=== PATIENT | female | born 1970 | race African-American/Black ===

== ENCOUNTER 2017-05-31 10:20 | Emergency (ER) | payer SELFPAY ==
[2017-05-31] MEDS ORDERED: LIDOCAINE 2% VISCOUS SOLN 20 ML UDCUP PO ONE (10:47)
--- NOTE | 2017-05-31 10:47 | ER Document Report ---
ED Medical Screen (RME) - General Chief Complaint: Dizziness Stated Complaint: POSSIBLE INGESTION Time Seen by Provider: 05/31/17 10:41 Mode of Arrival: Ambulatory Information source: Patient TRAVEL OUTSIDE OF THE [place] IN LAST 30 DAYS: No - HPI Patient complains to provider of: Accidental ingestion Onset: This morning Onset/Duration: Gradual Quality of pain: Burning Associated Symptoms: None Exacerbated by: Denies Notes: 05/31/17 10:49 Patient is a 46-year-old female who states that approximately 3 AM this morning she accidentally drank what she thought was potpourri instead of an appropriate beverage. She was awake cleaning her house and took a BC capsule and drink the liquid to help wash it down. It appears that the bottle that contained potpourri actually contained some type of cleaning substance as it is clearly not potpourri but otherwise unidentifiable. Patient states several hours later she began with abdominal burning. No vomiting. No fevers or chills. - Related Data Smoking: Non-smoker Allergies/Adverse Reactions: No Known Allergies Allergy (Verified 05/31/17 10:26) Past Medical History - General Information source: Patient, [facility] Records - Social History Frequency of alcohol use: Occasional Drug Abuse: None - Past Medical History Cardiac Medical History: Reports: Hx Hypertension Neurological Medical History: Reports: Hx Migraine Renal/ Medical History: Denies: Hx Peritoneal Dialysis Psychiatric Medical History: Reports: Hx Attention Deficit Hyperactivity Disorder Past Surgical History: Reports: Hx Section - 2005, Hx Tubal Ligation - Immunizations Immunizations up to date: No Hx Diphtheria, Pertussis, Tetanus Vaccination: Yes Review of Systems - Review of Systems Gastrointestinal: Abdominal pain -: Yes All other systems reviewed and negative Physical Exam - Vital signs Vitals: Temp Pulse Resp BP Pulse Ox 98.4 F 71 16 134/91 H 100 05/31/17 10:25 05/31/17 10:25 05/31/17 10:25 05/31/17 10:25 05/31/17 10:25 Interpretation: Normal - General General appearance: Appears well, Alert - HEENT Head: Normocephalic, Atraumatic Eyes: Normal Pupils: PERRL - Respiratory Respiratory status: No respiratory distress Chest status: Nontender Breath sounds: Normal Chest palpation: Normal - Cardiovascular Rhythm: Regular Heart sounds: Normal auscultation Murmur: No - Abdominal Inspection: Normal Distension: No distension Bowel sounds: Normal Tenderness: Nontender Organomegaly: No organomegaly - Back Back: Normal, Nontender - Extremities General upper extremity: Normal inspection, Nontender, Normal color, Normal ROM , Normal temperature General lower extremity: Normal inspection, Nontender, Normal color, Normal ROM , Normal temperature, Normal weight bearing. No: Maite's sign - Neurological Neuro grossly intact: Yes Cognition: Normal Orientation: AAOx4 Mariola Coma Scale Eye Opening: Spontaneous Mariola Coma Scale Verbal: Oriented Elberta Coma Scale Motor: Obeys Commands Elberta Coma Scale Total: 15 Speech: Normal Motor strength normal: LUE, RUE, LLE, RLE Sensory: Normal - Psychological Associated symptoms: Normal affect, Normal mood - Skin Skin Temperature: Warm Skin Moisture: Dry Skin Color: Normal Course - Re-evaluation Re-evalutation: 05/31/17 11:43 Patient with accidental ingestion of nontoxic cleaning product. There was no chlorine odor noted to the substance consumed. She does have some associated gastritis as a result. Given GI cocktail along with tramadol here. Discussed need to increase fluids. Allen diet. Also discussed need to not place substances and bottles that are not properly labeled. No indication for further intervention at this time. 05/31/17 11:45 - Vital Signs Vital signs: Temp Pulse Resp BP Pulse Ox 98.4 F 71 16 134/91 H 100 05/31/17 10:25 05/31/17 10:25 05/31/17 10:25 05/31/17 10:25 05/31/17 10:25 Doctor's Discharge - Discharge Clinical Impression: Accidental ingestion of substance Condition: Good Disposition: HOME, SELF-CARE Instructions: Overdose / Ingestion ([facility]) Additional Instructions: Increase clear fluids. Allen diet. Be sure not to place chemicals in them properly labeled bottles. Always read label of what you are drinking prior to drinking it. Follow-up with your primary care doctor. Return to the emergency department if worse or for any other problems. Prescriptions: Sucralfate [Carafate] 1 gm PO QID #150 ml
[2017-05-31] MEDS ORDERED: MAG HYDROX/AL HYDROX/SIMETH SUSP 30 ML UDCUP PO ONE (10:48)
[2017-05-31] MEDS ORDERED: TRAMADOL HCL 50 MG TABLET PO ONE (11:32)
[2017-05-31] MEDS ORDERED: HYDROCODONE/ACETAMINOPHEN 5-325 MG TABLET PO ONE (12:25)
[2017-05-31] MEDS ORDERED: HYDROCODONE/ACETAMINOPHEN 5-325 MG TABLET ONE (12:28)
[2017-05-31 13:00] VITALS: BP 119/75
== END 2017-05-31 12:45 | disposition home or self-care (01) ==
LOC: ER 10:20
DX: K29.70 Gastritis, unspecified, without bleeding (principal); T65.891A Toxic effect of other specified substances, accidental (unintentional), initial encounter; Y92.009 Unspecified place in unspecified non-institutional (private) residence as the place of occurrence of the external cause; R10.9 Unspecified abdominal pain; I10 Essential (primary) hypertension
CPT/HCPCS: 99283; J3490

== ENCOUNTER 2017-07-01 07:21 | Emergency (ER) | payer SELFPAY ==
[2017-07-01] MEDS ORDERED: NORMAL SALINE 1000 ML 1,000 ML IV ONE (07:57)
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
[2017-07-01 08:29] LABS: ABSOLUTE LYMPHOCYTES (AUTO) 1.9 10^3/uL (0.5-4.7); ABSOLUTE MONOCYTES (AUTO) 0.3 10^3/uL (0.1-1.4); ABSOLUTE NEUT (AUTO) 0.9 10^3/uL (1.7-8.2); BASOPHILS % (AUTO) 1.1 % (0-2); EOSINOPHILS % (AUTO) 1.5 % (0-6); HEMATOCRIT 26.6 % (36.0-47.0); HEMOGLOBIN 8.9 g/dL (12.0-15.5); HGB HCT DIFFERENCE 0.1; LYMPHOCYTES % (AUTO) 58.1 % (13-45); MEAN CORPUSCULAR HEMOGLOBIN 29.4 pg (27.0-33.4); MEAN CORPUSCULAR HGB CONC 33.5 g/dL (32.0-36.0); MEAN CORPUSCULAR VOLUME 88 fl (80-97); MONOCYTES % (AUTO) 10.4 % (3-13); RED BLOOD COUNT 3.04 10^6/uL (3.72-5.28); SEGMENTED NEUTROPHILS % (AUTO) 28.9 % (42-78); WHITE BLOOD COUNT 3.2 10^3/uL (4.0-10.5)
[2017-07-01 08:41] LABS: ALANINE AMINOTRANSFERASE 23 U/L (9-52); ALBUMIN 3.4 g/dL (3.5-5.0); ALCOHOL < 10 mg/dL (NONE DETECTED); ALKALINE PHOSPHATASE 32 U/L (38-126); ANION GAP 9 (5-19); ASPARTATE AMINO TRANSFERASE 19 U/L (14-36); BILIRUBIN,DIRECT 0.3 mg/dL (0.0-0.4); BILIRUBIN,TOTAL 0.3 mg/dL (0.2-1.3); BLOOD UREA NITROGEN 18 mg/dL (7-20); CALCIUM 8.8 mg/dL (8.4-10.2); CARBON DIOXIDE 22 mmol/L (22-30); CHLORIDE 108 mmol/L (98-107); CREATININE RESULT 1.11 mg/dL (0.52-1.25); GLUCOSE 80 mg/dL (75-110); POTASSIUM 3.5 mmol/L (3.6-5.0); SODIUM 138.6 mmol/L (137-145); TOTAL PROTEIN 6.3 g/dL (6.3-8.2)
[2017-07-01 09:34] LABS: APPEARANCE,URINE CLEAR; BILIRUBIN,URINE NEGATIVE (NEGATIVE); GLUCOSE, URINE NEGATIVE (NEGATIVE); KETONES,URINE NEGATIVE (NEGATIVE); LEUKOCYTE ESTERASE,URINE NEGATIVE (NEGATIVE); NITRITE,URINE NEGATIVE (NEGATIVE); PROTEIN,URINE NEGATIVE (NEGATIVE); UROBILINOGEN,URINE NEGATIVE mg/dL (<2.0)
[2017-07-01 10:03] LABS: URINE BARBITURATES SCREEN NEGATIVE; URINE METHADONE SCREEN NEGATIVE; URINE OPIATES LOW NEGATIVE; URINE PHENCYCLIDINE SCREEN NEGATIVE
--- NOTE | 2017-07-01 10:25 | RADIOLOGY REPORT (SQ) ---
EXAM DESCRIPTION: CT HEAD WITHOUT COMPLETED DATE/TIME: 07/01/2017 9:58 am REASON FOR STUDY: altered mental status COMPARISON: None. TECHNIQUE: Axial images acquired through the brain without intravenous contrast. Images reviewed wi th bone, brain and subdural windows. Images stored on PACS. All CT scanners at this facility use dose modulation, iterative reconstruction, and/or weight based d osing when appropriate to reduce radiation dose to as low as reasonably achievable (ALARA). [facility]: Dose Right [facility]: CareDose [facility]: Dose Right [facility]: Teradose 4D [facility]: Smart [employer] RADIATION DOSE: Up-to-date CT equipment and radiation dose reduction techniques were employed. CTDIv ol: 64.6 mGy. DLP: 1163 mGy-cm. mGy. LIMITATIONS: None. FINDINGS: VENTRICLES: Normal size and contour. CEREBRUM: No masses. No hemorrhage. No midline shift. Normal jain/white matter differentiation. N o evidence for acute infarction. CEREBELLUM: No masses. No hemorrhage. No alteration of density. No evidence for acute infarction. EXTRAAXIAL SPACES: No fluid collections. No masses. ORBITS AND GLOBE: No intra- or extraconal masses. Normal contour of globe without masses. CALVARIUM: No fracture. PARANASAL SINUSES: No fluid or mucosal thickening. SOFT TISSUES: No mass or hematoma. OTHER: No other significant finding. IMPRESSION: NORMAL BRAIN CT WITHOUT CONTRAST. TECHNICAL DOCUMENTATION: JOB ID: [id number] Quality ID # [id number]: Final reports with documentation of one or more dose reduction techniques (e.g., Au tomated exposure control, adjustment of the mA and/or kV according to patient size, use of iterative reconstruction technique) 2010 [employer]- All Rights Reserved
[2017-07-01 11:17] VITALS: BP 105/79
--- NOTE | 2017-07-01 16:33 | EKG REPORT ---
SEVERITY:- NORMAL ECG - SINUS RHYTHM : Confirmed by: Darlene Saul 01-Jul-2017 16:33:04
== END 2017-07-01 11:14 | disposition home or self-care (01) ==
LOC: ER 07:21
DX: F19.10 Other psychoactive substance abuse, uncomplicated (principal); I10 Essential (primary) hypertension; Z98.51 Tubal ligation status
CPT/HCPCS: 93005; 99285; 96360; 96361; 36415; 80307 ×2; 83735; 85025; 82272; 80053; 81001; 70450; 93010; J7030

== ENCOUNTER 2017-10-09 12:31 | Emergency (ER) | payer SELFPAY ==
[2017-10-09] MEDS ORDERED: CEPHALEXIN 500 MG CAPSULE PO ONE (13:41)
[2017-10-09] MEDS ORDERED: SULFAMETHOXAZOLE/TRIMETHOPRIM 800-160 MG TABLET PO ONE (13:41)
[2017-10-09] MEDS ORDERED: HYDROCODONE/ACETAMINOPHEN 5-325 MG 6 TAB/DSPK PO PRN (13:42)
--- NOTE | 2017-10-09 13:44 | ER Document Report ---
ED Skin Rash/Insect Bite/Abscs - General Chief Complaint: abcess Stated Complaint: LEG PAIN Time Seen by Provider: 10/09/17 12:55 Mode of Arrival: Ambulatory Information source: Patient Notes: 7-year-old female presents to ED for a abscess to the right lower leg TRAVEL OUTSIDE OF THE [place] IN LAST 30 DAYS: No - HPI Patient complains to provider of: Tender/swollen area Onset: Other Onset/Duration: Gradual Quality of pain: Fullness, Pressure, Sharp Severity: Severe Pain Level: 5 Skin Character: Abscess Quality of rash: Painful Identify cause: No Exacerbated by: Denies Relieved by: Denies Similar symptoms previously: Yes Recently seen / treated by doctor: No - Related Data Allergies/Adverse Reactions: No Known Allergies Allergy (Verified 05/31/17 10:26) Past Medical History - General Information source: Patient - Social History Smoking Status: Current Every Day Smoker Cigarette use (# per day): Yes Chew tobacco use (# tins/day): No Smoking Education Provided: Yes - Less than 3 minutes Frequency of alcohol use: None Drug Abuse: None Lives with: Family Family History: Reviewed & Not Pertinent Patient has suicidal ideation: No Patient has homicidal ideation: No - Past Medical History Cardiac Medical History: Reports: Hx Hypertension Pulmonary Medical History: Reports: None EENT Medical History: Reports: None Neurological Medical History: Reports: Hx Migraine Endocrine Medical History: Reports: None Renal/ Medical History: Reports: None Malignancy Medical History: Reports: None GI Medical History: Reports: None Musculoskeltal Medical History: Reports None Skin Medical History: Reports Hx Cellulitis Psychiatric Medical History: Reports: Hx Attention Deficit Hyperactivity Disorder Traumatic Medical History: Reports: None Infectious Medical History: Reports: None Past Surgical History: Reports: Hx Section - 2006, Hx Tubal Ligation - Immunizations Immunizations up to date: No Hx Diphtheria, Pertussis, Tetanus Vaccination: Yes Review of Systems - Review of Systems Constitutional: No symptoms reported EENT: No symptoms reported Cardiovascular: No symptoms reported Respiratory: No symptoms reported Gastrointestinal: No symptoms reported Genitourinary: No symptoms reported Female Genitourinary: No symptoms reported Musculoskeletal: No symptoms reported Skin: Other - Abscess to right lower leg Hematologic/Lymphatic: No symptoms reported Neurological/Psychological: No symptoms reported Physical Exam - Vital signs Vitals: Temp Pulse Resp BP Pulse Ox 98.7 F 76 20 158/100 H 100 10/09/17 12:39 10/09/17 12:39 10/09/17 12:39 10/09/17 12:39 10/09/17 12:39 Interpretation: Normal - General General appearance: Appears well, Alert - HEENT Head: Normocephalic, Atraumatic Eyes: Normal Pupils: PERRL - Respiratory Respiratory status: No respiratory distress Chest status: Nontender Breath sounds: Normal Chest palpation: Normal - Cardiovascular Rhythm: Regular Heart sounds: Normal auscultation Murmur: No - Abdominal Inspection: Normal Distension: No distension Bowel sounds: Normal Tenderness: Nontender Organomegaly: No organomegaly - Back Back: Normal, Nontender - Extremities General upper extremity: Normal inspection, Nontender, Normal color, Normal ROM , Normal temperature General lower extremity: Normal ROM, Normal temperature, Normal weight bearing. No: Maite's sign - Neurological Neuro grossly intact: Yes Cognition: Normal Orientation: AAOx4 Williamson Coma Scale Eye Opening: Spontaneous Williamson Coma Scale Verbal: Oriented Williamson Coma Scale Motor: Obeys Commands Mariola Coma Scale Total: 15 Speech: Normal Motor strength normal: LUE, RUE, LLE, RLE Sensory: Normal - Psychological Associated symptoms: Normal affect, Normal mood - Skin Skin Temperature: Warm Skin Moisture: Dry Skin Color: Normal Skin irregularity: Abscess Location of irregularity: Extremities - right lower leg Irregularity with: Swelling, Tenderness, Warmth Course - Vital Signs Vital signs: Temp Pulse Resp BP Pulse Ox 98.6 F 77 20 150/95 H 98 10/09/17 14:33 10/09/17 14:33 10/09/17 12:39 10/09/17 14:33 10/09/17 14:33 Procedures - Incision and Drainage Right lower leg Time completed: 14:14 Type: Simple Anesthetic type: 1% Lidocaine mL's of anesthetic: 4 Blade size: 11 I&D procedure: Shurclens applied Incision Method: Incision made by scalpel Amount/type of drainage: Large amount of purulent drainage Discharge - Discharge Clinical Impression: Abscess to right lower leg Condition: Stable Disposition: HOME, SELF-CARE Instructions: Family Physicians / Practices Additional Instructions: ABSCESS: You have an abscess (boil). This a pus-forming infection, usually due to staph. Some boils may be left to drain on their own, but most require lancing. From the time the tender lump first appears, it may be three or four days before the abscess is ready to renny. Local heat and rest help at this stage of treatment. An antibiotic may prevent spread of the infection. Once the abscess is opened, packing may be placed into it. This is done so pus is not sealed inside by premature closure of the cavity. The packing will be removed at your follow-up visit or you may be advised to remove it yourself at home. Sometimes this packing must be replaced a few times during healing. The wound will heal with surprisingly little scar. Depending on the size and location of an abscess, healing can take one to four weeks. You may shower and wash the area around the incision site two or three times a day. Antibiotics may be prescribed, but are usually not necessary after an abscess has been drained. If you develop fever, chills, worsening pain, or increasing swelling in the area, call the doctor or return immediately. POST INCISION AND DRAINAGE: You have had an incision made to allow drainage of an abscess. The incision must remain open so that pus and debris can drain from the wound. If the abscess cavity is large, packing is placed. This keeps the tissues from collapsing and trapping pus inside, while the body shrinks the cavity. The packing may need to be replaced every day or two. The physician will instruct you on the packing. Keep a bulky dressing over the area. Replace it if it becomes saturated with blood or pus. Do not disturb the packing (if present). You may shower and cleanse the area with gentle soap and warm water two or three times a day. Local warmth may be soothing, and may promote faster healing. Return if you develop high fever or chills, or if you note spreading redness, increasing swelling, or increasing tenderness. ORAL NARCOTIC MEDICATION: You have been given a [employer] dispense pack for pain control. This medication is a narcotic. It's best taken with food, as nausea can result if taken on an empty stomach. Don't operate machinery or drive within six hours of taking this medication. Do not combine this medicine with alcohol, or with any medication which can cause sedation (such as cold tablets or sleeping pills) unless you get permission from the physician. Narcotics tend to cause constipation. If possible, drink plenty of fluids and eat a diet high in fiber and fruits. CEPHALEXIN: The antibiotic you've been prescribed is a member of the cephalosporin class. This type of antibiotic covers a wide variety of infections, including those of the skin, lungs, and urinary tract. It's useful for staph infections. This antibiotic is slightly similar to the penicillin family. In rare cases , a person who is allergic to penicillin will also be allergic to this medication. If you have had a severe allergic reaction to penicillin, and have not taken this antibiotic since that time, notify your doctor. Antibiotics which cover many germs ("broad spectrum" antibiotics) are more likely to cause diarrhea or "yeast" infections. Women prone to vaginal yeast problems may suffer an attack after taking this antibiotic. In infants, oral thrush (white spots "stuck" on the cheek) or yeast diaper rash may result. See your doctor if these problems occur. Call at once if you develop itching, hives , shortness of breath, or lightheadedness. TRIMETHOPRIM-SULFA: You have been given a prescription for trimethoprim-sulfa (TMS, Septra, Bactrim). This is a combination antibiotic of the sulfa class, often used for urinary tract infections, middle ear infections, bronchitis, shigella intestinal infection, and Pneumocystis pneumonia. TMS is usually well-tolerated. Occasional side effects include nausea and decreased appetite. Septra is not recommended for infants less than two months of age. Do not take this medication if you have experienced severe side effects or allergy to sulfa medicine. You should stop this medicine at once and contact your physician if you develop any rash, joint pain, shortness of breath, bruising, or jaundice ( yellow color in the skin), or if you develop any other new or unusual symptoms. Epsom Salt Soaks Soak the wound area in a container of warm epsom salt water. If you can't get the wound area into a bucket or desai, use a folded towel soaked in the epsom salt solution and apply to the area. Use clean hot tap water (about the temperature of a very warm bath), mixing in about one (1) teaspoon for every pint of water. Two gallon --> 16 teaspoons Epsom Salts One gallon --> 8 teaspoons Epsom Salts Two quarts --> 4 teaspoons Epsom Salts One quart --> 2 teaspoons Epsom Salts Soak the wound for about 20 minutes while gently moving it around in the water. Repeat this four (4) times a day. FOLLOW-UP CARE: Most simple abscesses will not require a follow up visit. If you had packing placed in the abscess, remove it as instructed by the physician. If you have been referred to a physician for follow-up care, call the physicians office for an appointment as you were instructed or within the next two days. If you experience worsening or a significant change in your symptoms, return to the Emergency Department at any time for re-evaluation. Prescriptions: Cephalexin Monohydrate [Keflex 500 mg Capsule] 500 mg PO QID #40 capsule Sulfamethoxazole/Trimethoprim [Septra-Ds 800-160 mg Tablet] 1 tab PO BID #20 tablet Forms: Elevated Blood Pressure, Smoking Cessation Education, Return to Work
[2017-10-09 14:34] VITALS: BP 150/95
== END 2017-10-09 14:34 | disposition home or self-care (01) ==
LOC: ER 12:31
PROC: 0H9KXZZ Drainage of Right Lower Leg Skin, External Approach (ICD-10-PCS; principal; 2017-10-09)
DX: L02.415 Cutaneous abscess of right lower limb (principal)
CPT/HCPCS: 99283; 87070; 87205; 87075; 87077; 87186; 10060; A6266

== ENCOUNTER 2017-10-11 21:40 | Emergency (ER) | payer SELFPAY ==
[2017-10-11 21:49] VITALS: BP 140/83
--- NOTE | 2017-10-11 22:24 | ER Document Report ---
HPI - HPI Pain Level: 5 Notes: Patient is a 47-year-old female who presents ED for a wound recheck status post incision and drainage performed 2 days ago. Patient had an incision and drainage performed on the right lower extremity and was placed on Bactrim and Keflex. Patient states that she has been keeping it covered. She has noticed that it does continue to have some scant discharge. Patient has been taking her antibiotics as directed. She has been taking Tylenol ibuprofen. Patient finished the [place] dispense pack that was given to her after the procedure. Patient has not noticed any worsening redness or symptoms otherwise. Patient states that she does continue to have pain and wants more narcotics. Denies any headache, fever, URI, sore throat, chest pain, palpitations, syncope, cough , shortness of breath, wheeze, dyspnea, abdominal pain, nausea/vomiting/ diarrhea. - ROS Notes: REVIEW OF SYSTEMS: CONSTITUTIONAL : Denies fever, chills, or sweats. Denies recent illness. EENT: Denies eye, ear, throat, or mouth pain or symptoms. Denies nasal or sinus congestion or discharge. Denies throat, tongue, or mouth swelling or difficulty swallowing. CARDIOVASCULAR: Denies chest pain. Denies palpitations or racing or irregular heart beat. Denies ankle edema. RESPIRATORY: Denies cough, cold, or chest congestion. Denies shortness of breath, difficulty breathing, or wheezing. GASTROINTESTINAL: Denies abdominal pain or distention. Denies nausea, vomiting , or diarrhea. GENITOURINARY: Denies difficulty urinating, painful urination, burning, frequency, blood in urine, or discharge. MUSCULOSKELETAL: Denies back or neck pain or stiffness. Denies joint pain or swelling. SKIN: see hpi NEUROLOGICAL: Denies confusion or altered mental status. Denies passing out or loss of consciousness. Denies dizziness or lightheadedness. Denies headache. Denies weakness or paralysis or loss of use of either side. Denies problems with gait or speech. Denies sensory loss, numbness, or tingling. ALL OTHER SYSTEMS REVIEWED AND NEGATIVE. Dictation was performed using [employer] recognition software - CONSTITUTIONAL Constitutional: DENIES: Fever, Chills - EENT EENT: DENIES: Sore Throat, Ear Pain, Eye problems - NEURO Neurology: DENIES: Headache, Weakness, Vision blurred, Dizzinesss / Vertigo - CARDIOVASCULAR Cardiovascular: DENIES: Chest pain - RESPIRATORY Respiratory: DENIES: Trouble Breathing, Coughing - GASTROINTESTINAL Gastrointestinal: DENIES: Abdominal Pain, Black / Bloody Stools - URINARY Urinary: DENIES: Dysuria, Urgency, Frequency - REPRODUCTIVE Reproductive: DENIES: : - MUSCULOSKELETAL Musculoskeletal: REPORTS: Extremity pain Past Medical History - Social History Smoking Status: Unknown if Ever Smoked Family History: Reviewed & Not Pertinent Patient has suicidal ideation: No Patient has homicidal ideation: No - Past Medical History Cardiac Medical History: Reports: Hx Hypertension Neurological Medical History: Reports: Hx Migraine Renal/ Medical History: Denies: Hx Peritoneal Dialysis Skin Medical History: Reports Hx Cellulitis Psychiatric Medical History: Reports: Hx Attention Deficit Hyperactivity Disorder Past Surgical History: Reports: Hx Section - 2005, Hx Tubal Ligation - Immunizations Immunizations up to date: No Hx Diphtheria, Pertussis, Tetanus Vaccination: Yes Vertical Provider Document - CONSTITUTIONAL Agree With Documented VS: Yes Notes: PHYSICAL EXAMINATION: GENERAL: Well-appearing, well-nourished and in no acute distress. LUNGS: Breath sounds clear to auscultation bilaterally and equal. No wheezes rales or rhonchi. HEART: Regular rate and rhythm without murmurs, rubs, gallops. Musculoskeletal: FROM to passive/active. Strength 5+/5. Extremities: No cyanosis, clubbing, or edema b/l. Peripheral pulses 2+. Capillary refill less than 3 seconds. NEUROLOGICAL: Normal speech, normal gait. Normal sensory, motor exams PSYCH: Normal mood, normal affect. SKIN: healing I&D with packing in place. No streaks, abscess, or purulent discharge noted. + mild tenderness. - INFECTION CONTROL TRAVEL OUTSIDE OF THE [place] IN LAST 30 DAYS: No - RESPIRATORY O2 Sat by Pulse Oximetry: 100 Course - Re-evaluation Re-evalutation: 10/11/17 22:42 Patient is an afebrile, well-hydrated, 47-year-old female who presents the ED for wound recheck status post incision and drainage to an abscess to her right lower extremity. Vitals are stable. PE is otherwise unremarkable. The wound appears to be healing nicely. The packing was removed. Patient continued to persist on narcotics for her pain. I did advise patient that it is not within our narcotics policy and that I do not believe that narcotics are clinically warranted for her condition at this time. Wound culture was reviewed and she is on appropriate antibiotics. Patient was noted to have a positive urine in June for cocaine, benzo, and marijuana. Patient states that if I am not going to give her any pain medication then she will just leave. she does not want the new packing placed while knowing the risks and benefits. Patient understands that the wound can close and recurrence can happen causing worsening symptoms and worsening pain and may lead to sepsis. Patient verbalized understanding and wants to leave. AMA form was filled out and signed. I did offer the patient Motrin and Tylenol, but patient declined. Patient needs a recheck in 3-5 days. Return to the ED with any worsening/ concerning symptoms otherwise as reviewed in discharge. Patient is in agreement. - Vital Signs Vital signs: Temp Pulse Resp BP Pulse Ox 98.9 F 87 20 140/83 H 100 10/11/17 21:47 10/11/17 21:47 10/11/17 21:47 10/11/17 21:47 10/11/17 21:47 Discharge - Discharge Clinical Impression: Encounter for wound re-check Condition: Stable Disposition: AGAINST MEDICAL ADVICE Instructions: Antibiotic Ointment Protection ([facility]), Epsom Salt Soaks ([facility]) Additional Instructions: Keep the original dressing on the wound for 24 hours unless the drainage soaks through. Change the dressing daily thereafter and use a small amount of triple antibiotic ointment over the open wound. Epsom salt soaks. Tylenol/ibuprofen as needed. Return to the ED and/or your PCM in 2-3 days for recheck and continue direction for wound packing. Monitor for any signs of worsening pain or redness, streaks, and/or fever. Return to the ED if noticing any of the above symptoms or as needed. Take medications as directed. Forms: Elevated Blood Pressure Referrals: [facility] [Provider Group] - Follow up as needed [facility] [Provider Group] - Follow up as needed
== END 2017-10-11 22:32 | disposition left against medical advice (07) ==
LOC: ER 21:40
DX: L02.415 Cutaneous abscess of right lower limb (principal)
CPT/HCPCS: 99282; A6266

== ENCOUNTER 2017-12-16 15:00 | Emergency (ER) | payer SELFPAY ==
[2017-12-16 15:41] LABS: ABSOLUTE BASOPHILS # (AUTO) 0.1 10^3/uL (0.0-0.2); ABSOLUTE LYMPHOCYTES (AUTO) 1.4 10^3/uL (0.5-4.7); ABSOLUTE MONOCYTES (AUTO) 0.5 10^3/uL (0.1-1.4); ABSOLUTE NEUT (AUTO) 2.2 10^3/uL (1.7-8.2); BASOPHILS % (AUTO) 1.2 % (0-2); EOSINOPHILS % (AUTO) 0.7 % (0-6); HEMATOCRIT 33.9 % (36.0-47.0); LYMPHOCYTES % (AUTO) 33.4 % (13-45); MEAN CORPUSCULAR HEMOGLOBIN 27.9 pg (27.0-33.4); MEAN CORPUSCULAR HGB CONC 32.5 g/dL (32.0-36.0); MEAN CORPUSCULAR VOLUME 86 fl (80-97); MONOCYTES % (AUTO) 11.5 % (3-13); PLATELET COUNT 319 10^3/uL (150-450); RED BLOOD COUNT 3.95 10^6/uL (3.72-5.28); RED CELL DISTRIBUTION WIDTH 16.2 % (11.5-14.0); SEGMENTED NEUTROPHILS % (AUTO) 53.2 % (42-78); TOTAL CELLS COUNTED % (AUTO) 100 %; WHITE BLOOD COUNT 4.1 10^3/uL (4.0-10.5)
--- NOTE | 2017-12-16 15:44 | ER Document Report ---
ED Psych Disorder / Suicide - General Chief Complaint: Overdose Stated Complaint: POSSIBLE OVERDOSE Time Seen by Provider: 12/16/17 15:18 Notes: 47-year-old female. History of depression. Followed by Dr. Mccormack with psychiatry. Had argument last night after being arrested for drug possession. This causes arguments at home. She subsequently ended up taking 120 mg of Prozac, 50 mg of Flexeril, 6 mg of add Xanax as well as 50 mg of Ambien TRAVEL OUTSIDE OF THE [place] IN LAST 30 DAYS: No - HPI Patient complains to provider of: Suicidal ideation, Suicidal attempt Onset: This evening Onset was: Gradual Severity: Severe - Related Data Allergies/Adverse Reactions: No Known Allergies Allergy (Verified 12/16/17 15:00) Past Medical History - General Information source: Patient - Social History Smoking Status: Current Every Day Smoker Chew tobacco use (# tins/day): No Frequency of alcohol use: None Drug Abuse: None Lives with: Spouse/Significant other Family History: Reviewed & Not Pertinent Patient has suicidal ideation: Yes Patient has homicidal ideation: No - Past Medical History Cardiac Medical History: Reports: Hx Hypertension Neurological Medical History: Reports: Hx Migraine Renal/ Medical History: Denies: Hx Peritoneal Dialysis Skin Medical History: Reports Hx Cellulitis Psychiatric Medical History: Reports: Hx Attention Deficit Hyperactivity Disorder Past Surgical History: Reports: Hx Section - 2005, Hx Tubal Ligation - Immunizations Immunizations up to date: No Hx Diphtheria, Pertussis, Tetanus Vaccination: Yes Review of Systems - Review of Systems Constitutional: No symptoms reported EENT: No symptoms reported Cardiovascular: No symptoms reported Respiratory: No symptoms reported Gastrointestinal: No symptoms reported Genitourinary: No symptoms reported Female Genitourinary: No symptoms reported Musculoskeletal: No symptoms reported Skin: No symptoms reported Hematologic/Lymphatic: No symptoms reported Neurological/Psychological: No symptoms reported, Depression, Suicidal ideation Physical Exam - Vital signs Vitals: Resp Pulse Ox 11 L 98 12/16/17 15:11 12/16/17 15:11 Interpretation: Normal - General General appearance: Appears well, Alert - HEENT Head: Normocephalic, Atraumatic Eyes: Normal Pupils: PERRL - Respiratory Respiratory status: No respiratory distress Chest status: Nontender Breath sounds: Normal Chest palpation: Normal - Cardiovascular Rhythm: Regular Heart sounds: Normal auscultation Murmur: No - Abdominal Inspection: Normal Distension: No distension Bowel sounds: Normal Tenderness: Nontender Organomegaly: No organomegaly - Back Back: Normal, Nontender - Extremities General upper extremity: Normal inspection, Nontender, Normal color, Normal ROM , Normal temperature General lower extremity: Normal inspection, Nontender, Normal color, Normal ROM , Normal temperature, Normal weight bearing. No: Maite's sign - Neurological Neuro grossly intact: Yes Cognition: Normal Orientation: AAOx4 Hellier Coma Scale Eye Opening: Spontaneous Mariola Coma Scale Verbal: Oriented Hellier Coma Scale Motor: Obeys Commands Mariola Coma Scale Total: 15 Speech: Normal Motor strength normal: LUE, RUE, LLE, RLE Sensory: Normal - Psychological Associated symptoms: Depressed, Flat affect, Tearful - Skin Skin Temperature: Warm Skin Moisture: Dry Skin Color: Normal Course - Re-evaluation Re-evalutation: 12/16/17 18:59 She will need evaluation by mental health. Will have prolonged watch in the ER based on her ingestion. Currently at this time her vital signs are normal in no acute distress. Labs fairly unremarkable. Blood pressure is 120/67, heart rate 85 and oxygen saturations are 95% on room air. Blood sugar is slightly low so started on some D5 normal saline. Anticipate clearing shortly. 12/16/17 20:01 Laboratory 12/16/17 12/16/17 12/16/17 15:15 15:15 15:15 WBC 4.1 RBC 3.95 Hgb 11.0 L Hct 33.9 L MCV 86 MCH 27.9 MCHC 32.5 RDW 16.2 H Plt Count 319 Seg Neutrophils % 53.2 Lymphocytes % 33.4 Monocytes % 11.5 Eosinophils % 0.7 Basophils % 1.2 Absolute Neutrophils 2.2 Absolute Lymphocytes 1.4 Absolute Monocytes 0.5 Absolute Eosinophils 0.0 Absolute Basophils 0.1 Sodium 140.0 Potassium 3.8 Chloride 108 H Carbon Dioxide 20 L Anion Gap 12 BUN 15 Creatinine 0.72 Est GFR ( Amer) > 60 Est GFR (Non-Af Amer) > 60 Glucose 74 L Calcium 9.0 Total Bilirubin 0.5 Direct Bilirubin 0.5 H Neonat Total Bilirubin Not Reportable Neonat Direct Bilirubin Not Reportable Neonat Indirect Bili Not Reportable AST 26 ALT 24 Alkaline Phosphatase 41 Total Protein 7.5 Albumin 4.5 Serum HCG, Qual NEGATIVE Salicylates < 1.0 L Acetaminophen < 10 L Serum Alcohol < 10 Patient has been observed now for approximately 6 hours. Will move to the observation room for mental health at this time and await evaluation in the morning. We will continue to keep patient on monitor throughout the night. - Vital Signs Vital signs: Temp Pulse Resp BP Pulse Ox 17 132/88 H 97 12/16/17 17:01 12/16/17 17:00 12/16/17 17:01 - Laboratory Result Diagrams: 12/16/17 15:15 12/16/17 15:15 Laboratory results interpreted by me: 12/16/17 12/16/17 15:15 15:15 Hgb 11.0 L Hct 33.9 L RDW 16.2 H Chloride 108 H Carbon Dioxide 20 L Glucose 74 L Direct Bilirubin 0.5 H Salicylates < 1.0 L Acetaminophen < 10 L Discharge - Discharge Clinical Impression: Suicidal ideation, Intentional overdose of drug in tablet form Major depressive disorder Qualifiers: Major depression recurrence: recurrent Active/Remission status: currently active Major depression episode severity: moderate Qualified Code(s): F33.1 - Major depressive disorder, recurrent, moderate
--- NOTE | 2017-12-16 15:58 | PSYCHOLOGICAL NOTE ---
Psych Note - Psych Note Psych Note: Reason for Consult: Overdose; IVC Consent Permissions: unable to provide [place] son [phone] Jean, Spouse [phone] Son brought patient in stating she has overdosed on medications today. States she took xanax, motrin, muscle relaxers. Patient states she took about 30 pills. Son states he got a phone call about 1 hour ago and she took the pills prior to that. Patient's son, Cullen, states that he received a phone call from his mother. She disclosed that she had left him but did not want to live anymore. She was staying at hotel and originally would not tell him where she was. She ultimately told him which hotel she was staying at. Upon arriving he found her in the room with "pills all over the place." He disclosed that he does not know why she is not staying at home; patient is still to his father. He states that he does know she had been staying with her sister before moving into the hotel. He disclosed that he does know she is been under a lot of stress from work and heard that she was "locked up" last night but does not know why. He disclosed that he called his dad to find out what was going on but he told him that he had not talked to the patient in a few days. Patient's son disclosed that she has done this once before proximally one year ago where she went off by herself however does not think that she attempted to hurt herself then. He disclosed that she does receive a lot of prescriptions but does not know who her provider is. Patient's [place] controlled substance report indicates patient is outpatient provider is Dr. Tom. Patient received prescriptions on December 13, 2017 for Ambien 10 mg; 30 day supply of 30 pills and Xanax 2 mg; 28 day supply of 55 pills. It is noted the patient had a change in prescriptions from previous months. Patient was receiving dextroamphetamine 20 mg; 30 day supply of 90 pills however patient did not receive this prescription in November. Both Ambien and Xanax prescriptions are consistent throughout the months. Records indicate patient was arrested last night for possession of drug paraphernalia, possession of controlled substance schedule II, driving while impaired, and possession of marijuana up to 1/2 ounce. Patient is unable to engage in evaluation at this time. Impression\\plan: Patient is recommended for IVC. Patient contacted her son to say goodbye that she wanted to . Patient presented to [facility] ED after intentional overdose. Dr. Yi was consulted on the care management of this patient; attending physician in agreement with recommendations and disposition.
[2017-12-16 16:03] LABS: ALANINE AMINOTRANSFERASE 24 U/L (9-52); ALBUMIN 4.5 g/dL (3.5-5.0); ALKALINE PHOSPHATASE 41 U/L (38-126); ANION GAP 12 (5-19); ASPARTATE AMINO TRANSFERASE 26 U/L (14-36); BILIRUBIN,DIRECT 0.5 mg/dL (0.0-0.4); BILIRUBIN,TOTAL 0.5 mg/dL (0.2-1.3); BLOOD UREA NITROGEN 15 mg/dL (7-20); CARBON DIOXIDE 20 mmol/L (22-30); CHLORIDE 108 mmol/L (98-107); GLUCOSE 74 mg/dL (75-110); POTASSIUM 3.8 mmol/L (3.6-5.0); TOTAL PROTEIN 7.5 g/dL (6.3-8.2)
[2017-12-16 16:05] LABS: ACETAMINOPHEN < 10 ug/mL (10-30); ALCOHOL < 10 mg/dL (NONE DETECTED); SALICYLATE < 1.0 mg/dL (2.0-20.0)
[2017-12-16] MEDS ORDERED: DEXTROSE 5%-NORMAL SALINE 1,000 ML IV ONE (17:07)
[2017-12-16] MEDS ORDERED: IBUPROFEN 600 MG TABLET PO ONE (21:40)
[2017-12-17 03:04] LABS: URINE AMPHETAMINES SCREEN NEGATIVE; URINE BARBITURATES SCREEN NEGATIVE; URINE BENZODIAZEPINES SCREEN UNCONFIRMED POSITIVE; URINE COCAINE SCREEN UNCONFIRMED POSITIVE; URINE MARIJUANA (THC) SCREEN UNCONFIRMED POSITIVE; URINE METHADONE SCREEN NEGATIVE; URINE PHENCYCLIDINE SCREEN NEGATIVE
[2017-12-17 03:07] LABS: APPEARANCE,URINE CLOUDY; BILIRUBIN,URINE MODERATE (NEGATIVE); COLOR,URINE YELLOW; GLUCOSE, URINE NEGATIVE (NEGATIVE); KETONES,URINE 20 mg/dL (NEGATIVE); LEUKOCYTE ESTERASE,URINE LARGE (NEGATIVE); NITRITE,URINE NEGATIVE (NEGATIVE); PROTEIN,URINE 30 mg/dL (NEGATIVE); URINE SPECIFIC GRAVITY 1.027; UROBILINOGEN,URINE NEGATIVE mg/dL (<2.0)
--- NOTE | 2017-12-17 10:39 | ER Document Report ---
Doctor's Note Notes: 12/17/17 10:37 Rounds: Chart reviewed and patient interviewed. Vital signs are all essentially normal. Lab studies were all essentially normal except that the patient looks like she probably has a UTI and her drug screen was positive for cocaine, benzos, and marijuana. I have started her on Macrobid twice a day. She is being given Vistaril as needed. Patient appears to be medically stable for transfer or discharge. Jaylin Jeronimo MD
[2017-12-17] MEDS ORDERED: NITROFURANTOIN MONOHYD/M-CRYST 100 MG CAPSULE PO SCH (10:45)
--- NOTE | 2017-12-17 11:55 | EKG REPORT ---
SEVERITY:- NORMAL ECG - SINUS RHYTHM : Confirmed by: Natalie Jamison MD 17-Dec-2017 11:54:10
--- NOTE | 2017-12-17 12:24 | PSYCHOLOGICAL NOTE ---
Psych Note - Psych Note Psych Note: Reason for Consult: Overdose/ Suicide Attempt Consents given: None Patient is a 47 year old female who presented to the Emergency Department after an attempted suicide. Patient reported she took approximately 30 pills. She stated the pills were a mix Xanax, Prozac and muscle relaxers. Patient stated she is under a great deal of stress. She stated she was at a motel to visit a friend when she fell asleep in the parking lot. She stated when she woke up a little while later, her car was "surrounded by assistant designer." She stated she was taken to correction because she had drugs in her purse. She reported the officer threw her up against a wall and put bruises on her wrists with the handcuffs. Patient stated she is supposed to go to court tomorrow 12.18.17 for the drug charges as well as resisting arrest, which she stated was a false charge as she did not resist arrest. Patient stated after she was released from correction she went back to the motel, to see her friend, and then dumped her medication i a pile and started taking handfuls of them. Patient stated she then called her oldest son and told him why she was attempting to commit suicide. 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 She said because of that call from her she was demoted and a "19 year old girl took my place." The patient stated that having to go in and have her demotion "rubbed in my face" every day was "too much." Patient stated she felt like "a failure and I want my kids to be proud of me." Patient reported she wanted to . When this military pay technician asked about the drugs in the patient's system, patient denied she had done cocaine recently. She stated it has been "at least two days." Patient admitted to daily marijuana use and stated she smoked marijuana yesterday (12.16.17). Patient stated, "I'm not a coke head and I'm not in withdrawals. Everybody does a little causal drug use." Per nurse report, patient is making multiple phone calls stating as soon as she gets out of the hospital she is going to "finish the job" of killing herself. Patient is reportedly agitated and making multiple statements in hearing of nurses and audit consultant of continuing to have suicidal ideation, intent and plan. Patient was informed that phone usage and visitors will be curtailed if her behavior continues. Patient continues to become tearful when she talks about her children and wanting them to be proud of her. Patient's daughter, at bedside , stated the patient is supposed to go to court tomorrow and wants to know if we will be able to provide documentation that the patient was in the hospital so she does not incur additional charges. This military pay technician explained that a note stating the patient was hospitalized could be provided by the doctor but is unsure how that affects additional charges. This military pay technician received a call from Anna, identified by the nurse as the patient's mother. Anna stated the patient is on Adderall, Prozac, Xanax and a sleeping pill which she thinks is Ambien. The caller stated all of the medications are for the "patient's mind." She stated the medications make the patient fall asleep at the drop of a hat. She stated "someone needs to monitor that and not give her so much medication." She stated the patient was going to a doctor but that doctor quit prescribing all of the medications and the patient quit going to that doctor and went to another doctor who would prescribe her all of the medications she was on previously. She reported when the patient takes Ambien it has "an adverse affect" on the patient. She stated when the patient had her "position at work taken it made her more depressed. Before two weeks ago, I haven't seen her this bad." She stated the patient thinks "her world is crumbling around her and she is in a dark place right now. " Patient was alert and oriented to person, place, time and circumstance. Mood was guarded and tearful with congruent affect. Patient continued to make suicidal statements and continues to have access to medications. She did not appear to be responding to internal stimuli as evidenced by appropriate eye contact, maintaining conversation and staying on topic. No delusions or psychosis noted. Thought processes were organized and linear. Attention and concentration were fair. Conversational speech was normal for rate, tone and prosody. Intellectual abilities were estimated in the average range. Insight, judgment and impulse control were poor as evidenced by the patient minimizing suicidal behaviors, drug use and legal involvement. 1. 311 (F32.9) Unspecified Depressive Disorder 2. Poly-Substance Use Disorder 305.60 (F14.20) Cocaine Use Disorder 305.20 (F12.20) Cannabis Use Disorder Impression/Plan: Recommend continuing IVC. Patient is not psychiatrically clear. She continues to meet CT G.S 122C IVC criteria as evidenced by continuing suicidal ideation, intent and plan. She evidences little insight, poor impulse control and poor judgment. She is considered a danger to herself at this time. Medication recommendations were made for Vistaril 50mg q6 prn. Consult[address] with Dr[address] Yi regarding the care and management of this patient. ED physician in agreement with recommendation and disposition.
[2017-12-17] MEDS ORDERED: NITROFURANTOIN MONOHYD/M-CRYST 100 MG CAPSULE PO ONE (12:30)
[2017-12-17] MEDS ORDERED: FLUOXETINE HCL 20 MG CAPSULE PO SCH (12:45)
[2017-12-17] MEDS ORDERED: HYDROCHLOROTHIAZIDE 12.5 MG CAPSULE PO ONE ×2 (13:05→14:30)
[2017-12-17] MEDS ORDERED: HYDROCHLOROTHIAZIDE 12.5 MG CAPSULE PO SCH (13:15)
[2017-12-17] MEDS ORDERED: LISINOPRIL 10 MG TABLET PO SCH (13:15)
[2017-12-17] MEDS ORDERED: FLUOXETINE HCL 20 MG CAPSULE PO ONE (14:00)
[2017-12-17] MEDS: IBUPROFEN 600 MG TABLET PO PRN (14:20)
[2017-12-17] MEDS ORDERED: LISINOPRIL 10 MG TABLET PO ONE (14:30)
[2017-12-17 16:55] VITALS: BP 141/84
[2017-12-17] MEDS: HYDROXYZINE PAMOATE 50 MG CAPSULE PO PRN ×2 (17:11→23:56)
[2017-12-17] MEDS: NITROFURANTOIN MONOHYD/M-CRYST 100 MG CAPSULE PO SCH (22:50)
[2017-12-18] MEDS: IBUPROFEN 600 MG TABLET PO PRN (08:46)
[2017-12-18] MEDS: NITROFURANTOIN MONOHYD/M-CRYST 100 MG CAPSULE PO SCH (09:09)
--- NOTE | 2017-12-18 09:19 | ER Document Report ---
Doctor's Note Notes: 12/18/17 09:19 As the rounding physician for our psychiatric patients, I have reviewed the chart, vitals, lab work. Patient has been examined and noted to be stable. Patient appears to have urinary tract infection was treated with Macrobid twice daily by prior provider. I am awaiting mental health in put.
[2017-12-18] MEDS ORDERED: FLUOXETINE HCL 20 MG CAPSULE PO SCH (10:00)
[2017-12-18] MEDS ORDERED: HYDROCHLOROTHIAZIDE 12.5 MG CAPSULE PO SCH (10:00)
[2017-12-18] MEDS ORDERED: LISINOPRIL 10 MG TABLET PO SCH (10:00)
--- NOTE | 2017-12-19 09:31 | PSYCHOLOGICAL NOTE ---
Psych Note - Psych Note Psych Note: Reason for Consult: Overdose/ Suicide Attempt Consents given: None Patient was re-evaluated this morning. Patient reported her family has been by her side since she was brought into the hospital and she recognizes how much support she really has. Patient stated she feels "stupid for wanting to make that kind of error and leave my babies." Patient reported she talked to her last night via phone. She reported he "opened up his heart to me and said his apologies." Patient stated she was willing to return to the family's home and continue to work out any remaining concerns with her of 28 years. Patient reported she appreciated he was able to see how badly he handled their work situation and they both agreed to work on their communication. Patient reported her asked her to come home after she was discharged from the hospital. Patient stated she recognizes how taking her own life would have far reaching affects and she doesn't want to cause her children that kind of pain. Patient continues to deny she has a drug problem and declined any resources to address her drug use. Patient stated she is a recreational drug user. Patient did admit she was engaged in the "wrong kind of partying" and will be more mindful of that going forward. Patient was alert and oriented to person, place, time and circumstance. Mood was euthymic with congruent affect. Patient denied suicidal/homicidal ideation, intent or plan. She did not appear to be responding to internal stimuli as evidenced by appropriate eye contact, maintaining conversation and staying on topic. No delusions or psychosis noted. Thought processes were organized and linear. Attention and concentration were normal. Conversational speech was normal for rate, tone and prosody. Intellectual abilities were estimated in the average range. Insight, judgment and impulse control were fair as evidenced by patient's ability to recognize the level of support she has and how her behaviors impact her family members. 1. 311 (F32.9) Unspecified Depressive Disorder 2. Poly-Substance Use Disorder 305.60 (F14.20) Cocaine Use Disorder 305.20 (F12.20) Cannabis Use Disorder Impression/Plan: Recommend rescind IVC. Patient is psychiatrically clear. She no longer meets [place] G.S 122C IVC criteria. Patient denies suicidal/homicidal ideation, intent or plan. Patient is able to identify varied family support and impulsivity of her prior behaviors. Medication recommendation made for Vistaril 50mg q12. Patent is recommended to follow up with her established provider for continuing treatment of her mental health and medication management needs. Consulted with Dr. Yi regarding the care and management of this patient. ED physician in agreement with recommendation and disposition.
== END 2017-12-18 11:27 | disposition home or self-care (01) ==
LOC: ER 15:00
DX: T42.4X1A Poisoning by benzodiazepines, accidental (unintentional), initial encounter (principal); T39.312A Poisoning by propionic acid derivatives, intentional self-harm, initial encounter; T48.202A Poisoning by unspecified drugs acting on muscles, intentional self-harm, initial encounter; F33.1 Major depressive disorder, recurrent, moderate; F17.200 Nicotine dependence, unspecified, uncomplicated; I10 Essential (primary) hypertension; Z98.51 Tubal ligation status; N39.0 Urinary tract infection, site not specified; F14.20 Cocaine dependence, uncomplicated; F12.20 Cannabis dependence, uncomplicated
CPT/HCPCS: 93005; 99285; 96360; 96361; 36415; 87086; 80307 ×4; 84703; 85025; 80053; 81001; 93010; J8499 ×2

== ENCOUNTER → 2018-02-02 | Outpatient (CLI) | payer MEDICAID ==
[2018-02-02 16:36] LABS: ABSOLUTE BASOPHILS # (AUTO) 0.1 10^3/uL (0.0-0.2); ABSOLUTE EOSINOPHILS # (AUTO) 0.1 10^3/uL (0.0-0.6); ABSOLUTE LYMPHOCYTES (AUTO) 1.6 10^3/uL (0.5-4.7); ABSOLUTE MONOCYTES (AUTO) 0.4 10^3/uL (0.1-1.4); ABSOLUTE NEUT (AUTO) 3.1 10^3/uL (1.7-8.2); HEMATOCRIT 34.4 % (36.0-47.0); HEMOGLOBIN 11.3 g/dL (12.0-15.5); LYMPHOCYTES % (AUTO) 31.2 % (13-45); MEAN CORPUSCULAR HEMOGLOBIN 28.1 pg (27.0-33.4); MEAN CORPUSCULAR HGB CONC 32.8 g/dL (32.0-36.0); MEAN CORPUSCULAR VOLUME 86 fl (80-97); MONOCYTES % (AUTO) 8.1 % (3-13); PLATELET COUNT 399 10^3/uL (150-450); RED BLOOD COUNT 4.01 10^6/uL (3.72-5.28); RED CELL DISTRIBUTION WIDTH 16.3 % (11.5-14.0); SEGMENTED NEUTROPHILS % (AUTO) 58.7 % (42-78); TOTAL CELLS COUNTED % (AUTO) 100 %; WHITE BLOOD COUNT 5.2 10^3/uL (4.0-10.5)
== END ==
LOC: OD 15:29
PROVIDERS: ATTEND Nurse Practitioner Acute Care
DX: M25.542 Pain in joints of left hand (principal)
CPT/HCPCS: 36415; 84550; 85025; 86430

== ENCOUNTER 2018-03-26 21:49 | Observation (INO) | payer MEDICAID ==
[2018-03-26] MEDS ORDERED: FENTANYL CITRATE INJ/PF 100 MCG/2 ML AMPUL IV ONE (23:42)
[2018-03-26 23:45] LABS: APPEARANCE,URINE CLEAR; BILIRUBIN,URINE NEGATIVE (NEGATIVE); COLOR,URINE STRAW; GLUCOSE, URINE NEGATIVE (NEGATIVE); KETONES,URINE NEGATIVE (NEGATIVE); LEUKOCYTE ESTERASE,URINE SMALL (NEGATIVE); NITRITE,URINE NEGATIVE (NEGATIVE); PROTEIN,URINE NEGATIVE (NEGATIVE); URINE SPECIFIC GRAVITY 1.013; UROBILINOGEN,URINE NEGATIVE mg/dL (<2.0)
[2018-03-26] MEDS ORDERED: ONDANSETRON HCL INJ/PF 4 MG/2 ML SDV IV ONE (23:50)
[2018-03-26] MEDS ORDERED: NORMAL SALINE 1000 ML 1,000 ML IV ONE (23:50)
--- NOTE | 2018-03-26 23:50 | ER Document Report ---
ED General - General Chief Complaint: Lower Abdominal Pain Stated Complaint: ABDOMINAL PAIN Time Seen by Provider: 03/26/18 23:22 Mode of Arrival: Ambulatory Information source: Patient Notes: 47-year-old female presents with sudden right upper quadrant abdominal pain after eating. Patient admits nausea vomiting denies any fevers or chills denies any diarrhea. Patient notes the pain radiates to her right upper back. TRAVEL OUTSIDE OF THE [place] IN LAST 30 DAYS: No - HPI Onset: Just prior to arrival Onset/Duration: Sudden Quality of pain: Sharp Severity: Moderate Pain Level: 3 Associated symptoms: Nausea, Vomiting Exacerbated by: Food Relieved by: Denies Similar symptoms previously: No Recently seen / treated by doctor: No - Related Data Allergies/Adverse Reactions: No Known Allergies Allergy (Verified 12/16/17 15:00) Past Medical History - Social History Smoking Status: Current Every Day Smoker Cigarette use (# per day): Yes Chew tobacco use (# tins/day): No Smoking Education Provided: No Frequency of alcohol use: None Drug Abuse: None Family History: Reviewed & Not Pertinent Patient has suicidal ideation: No Patient has homicidal ideation: No - Past Medical History Cardiac Medical History: Reports: Hx Hypertension Neurological Medical History: Reports: Hx Migraine Renal/ Medical History: Denies: Hx Peritoneal Dialysis Skin Medical History: Reports Hx Cellulitis Psychiatric Medical History: Reports: Hx Attention Deficit Hyperactivity Disorder Past Surgical History: Reports: Hx Section - 2005, Hx Tubal Ligation - Immunizations Immunizations up to date: No Hx Diphtheria, Pertussis, Tetanus Vaccination: Yes Review of Systems - Review of Systems Notes: REVIEW OF SYSTEMS: CONSTITUTIONAL : Denies fever, chills, or sweats. Denies recent illness. EENT: Denies eye, ear, throat, or mouth pain or symptoms. Denies nasal or sinus congestion or discharge. Denies throat, tongue, or mouth swelling or difficulty swallowing. CARDIOVASCULAR: Denies chest pain. Denies palpitations or racing or irregular heart beat. Denies ankle edema. RESPIRATORY: Denies cough, cold, or chest congestion. Denies shortness of breath, difficulty breathing, or wheezing. GASTROINTESTINAL: Admits to right upper quadrant abdominal pain GENITOURINARY: Denies difficulty urinating, painful urination, burning, frequency, blood in urine, or discharge. FEMALE GENITOURINARY: Denies vaginal bleeding, heavy or abnormal periods, irregular periods. Denies vaginal discharge or odor. MUSCULOSKELETAL: Denies back or neck pain or stiffness. Denies joint pain or swelling. SKIN: Denies rash, lesions or sores. HEMATOLOGIC : Denies easy bruising or bleeding. LYMPHATIC: Denies swollen, enlarged glands. NEUROLOGICAL: Denies confusion or altered mental status. Denies passing out or loss of consciousness. Denies dizziness or lightheadedness. Denies headache. Denies weakness or paralysis or loss of use of either side. Denies problems with gait or speech. Denies sensory loss, numbness, or tingling. Denies seizures. PSYCHIATRIC: Denies anxiety or stress. Denies depression, suicidal ideation, or homicidal ideation. ALL OTHER SYSTEMS REVIEWED AND NEGATIVE. PHYSICAL EXAMINATION: GENERAL: Well-appearing, well-nourished and in no acute distress. HEAD: Atraumatic, normocephalic. EYES: Pupils equal round and reactive to light, extraocular movements intact, conjunctiva are normal. ENT: Nares patent, oropharynx clear without exudates. Moist mucous membranes. NECK: Normal range of motion, supple without lymphadenopathy LUNGS: Breath sounds clear to auscultation bilaterally and equal. No wheezes rales or rhonchi. HEART: Regular rate and rhythm without murmurs ABDOMEN: Soft, tender in the right upper quadrant with mild guarding Female : deferred Musculoskeletal: Normal range of motion, no pitting or edema. No cyanosis. NEUROLOGICAL: Cranial nerves grossly intact. Normal speech, normal gait. Normal sensory, motor exams PSYCH: Normal mood, normal affect. SKIN: Warm, Dry, normal turgor, no rashes or lesions noted. Dictation was performed using [employer] voice recognition software Physical Exam - Vital signs Vitals: Temp Pulse Resp BP Pulse Ox 98.5 F 85 18 158/119 H 98 03/26/18 22:04 03/26/18 22:04 03/26/18 22:04 03/26/18 22:04 03/26/18 22:04 Course - Re-evaluation Re-evalutation: 03/26/18 23:50 Patient's presentation is most consistent with acute cholecystitis, lab work pending 03/27/18 02:08 I am unable to see patients imaging, there is a delay due to a technical issue, Dr. Hernandez has been paged to evaluate patient 03/27/18 05:19 dr hernandez will admit to his service - Vital Signs Vital signs: Temp Pulse Resp BP Pulse Ox 98.3 F 85 20 166/105 H 100 03/27/18 02:29 03/26/18 22:04 03/27/18 05:02 03/27/18 05:02 03/27/18 05:02 - Laboratory Result Diagrams: 03/26/18 23:37 03/26/18 23:37 Laboratory results interpreted by me: 03/26/18 03/26/18 03/26/18 23:30 23:37 23:37 RDW 17.5 H Chloride 109 H Carbon Dioxide 21 L Alkaline Phosphatase 31 L Urine Blood SMALL H Ur Leukocyte Esterase SMALL H - Diagnostic Test Radiology reviewed: Image reviewed - gallbladder sludge noted, Reports reviewed Discharge - Discharge Clinical Impression: Acute cholecystitis Condition: Stable Disposition: ADMITTED INPATIENT Admitting Provider: Surgicalist Unit Admitted: Surgical Floor
[2018-03-26 23:58] LABS: ABSOLUTE BASOPHILS # (AUTO) 0.1 10^3/uL (0.0-0.2); ABSOLUTE LYMPHOCYTES (AUTO) 2.6 10^3/uL (0.5-4.7); ABSOLUTE MONOCYTES (AUTO) 0.5 10^3/uL (0.1-1.4); ABSOLUTE NEUT (AUTO) 3.7 10^3/uL (1.7-8.2); BASOPHILS % (AUTO) 1.5 % (0-2); EOSINOPHILS % (AUTO) 0.6 % (0-6); HEMATOCRIT 38.2 % (36.0-47.0); HEMOGLOBIN 12.7 g/dL (12.0-15.5); MEAN CORPUSCULAR HEMOGLOBIN 29.2 pg (27.0-33.4); MEAN CORPUSCULAR HGB CONC 33.3 g/dL (32.0-36.0); MEAN CORPUSCULAR VOLUME 88 fl (80-97); MONOCYTES % (AUTO) 7.7 % (3-13); PLATELET COUNT 413 10^3/uL (150-450); RED BLOOD COUNT 4.36 10^6/uL (3.72-5.28); RED CELL DISTRIBUTION WIDTH 17.5 % (11.5-14.0); SEGMENTED NEUTROPHILS % (AUTO) 53.2 % (42-78); TOTAL CELLS COUNTED % (AUTO) 100 %
[2018-03-27 00:13] LABS: ALANINE AMINOTRANSFERASE 19 U/L (9-52); ALBUMIN 4.6 g/dL (3.5-5.0); ALKALINE PHOSPHATASE 31 U/L (38-126); ANION GAP 12 (5-19); ASPARTATE AMINO TRANSFERASE 29 U/L (14-36); BILIRUBIN,DIRECT 0.4 mg/dL (0.0-0.4); BILIRUBIN,TOTAL 0.4 mg/dL (0.2-1.3); BLOOD UREA NITROGEN 10 mg/dL (7-20); CALCIUM 9.5 mg/dL (8.4-10.2); CARBON DIOXIDE 21 mmol/L (22-30); CHLORIDE 109 mmol/L (98-107); GLUCOSE 83 mg/dL (75-110); LIPASE 98.5 U/L (23-300); POTASSIUM 3.6 mmol/L (3.6-5.0); SODIUM 141.5 mmol/L (137-145); TOTAL PROTEIN 7.8 g/dL (6.3-8.2)
[2018-03-27] MEDS ORDERED: PIPERACILLIN/TAZOBACTAM 3.375 GM VIAL IV ONE (02:07)
[2018-03-27] MEDS ORDERED: FENTANYL CITRATE INJ/PF 100 MCG/2 ML AMPUL IV ONE (03:17)
[2018-03-27] MEDS ORDERED: METOCLOPRAMIDE HCL INJ/PF 10 MG/2 ML SDV IV ONE (03:50)
--- NOTE | 2018-03-27 04:26 | RADIOLOGY REPORT (SQ) ---
EXAM DESCRIPTION: U/S ABDOMEN LIMITED W/O DOP COMPLETED DATE/TIME: 03/27/2018 2:06 am REASON FOR STUDY: RUQ pain COMPARISON: None. TECHNIQUE: Dynamic and static grayscale images acquired of the abdomen and recorded on PACS. Additio nal selected color Doppler and spectral images recorded. LIMITATIONS: None. FINDINGS: PANCREAS: No masses. Visualized pancreatic duct normal caliber. LIVER: No masses. Echotexture normal. LIVER VASCULATURE: Normal directional flow of the main portal vein and hepatic veins. GALLBLADDER: Sludge versus small stones in the gallbladder. No thickened wall. ULTRASOUND-DETECTED QUINTANILLA'S SIGN: Negative. INTRAHEPATIC DUCTS AND COMMON DUCT: CBD and intrahepatic ducts normal caliber. No filling defects. INFERIOR VENA CAVA: Normal flow. AORTA: No aneurysm. RIGHT KIDNEY: Normal size. Normal echogenicity. No solid or suspicious masses. No hydronephrosis. No calcifications. PERITONEAL AND RIGHT PLEURAL SPACE: No ascites or effusions. OTHER: No other significant findings. IMPRESSION: Sludge versus small stones in the gallbladder. No thickening of the gallbladder wall. TECHNICAL DOCUMENTATION: JOB ID: [id number] [employer]- All Rights Reserved Reading location - IP/workstation name: [email or web address]
[2018-03-27] MEDS ORDERED: KETOROLAC TROMETHAMINE INJ/PF 30 MG/1 ML SDV IV PRN (04:31)
[2018-03-27] MEDS ORDERED: ONDANSETRON HCL INJ/PF 4 MG/2 ML SDV IV PRN ×2 (04:31→10:26)
[2018-03-27] MEDS ORDERED: RINGERS SOLUTION,LACTATED 1,000 ML IV PRN (04:32)
--- NOTE | 2018-03-27 04:41 | PDOC H&P ---
History of Present Illness Patient complains of: Abdominal pain History of Present Illness: ALEKSANDRA ARDON is a 47 year old female -[place] female who presents emergency department complaining of a 3 day history of abdominal pain nausea and vomiting, worse yesterday after eating rice, pain localized in the right upper quadrant radiating to the back worse after eating more food. Last bowel movement yesterday, incomplete. No previous episodes. Patient denies history of trauma. No family history of gallbladder patient's sister. Patient seen in emergency department where she had a gallbladder ultrasound which is not been interpreted by radiology yet. Patient is received IV fluids, pain medication in the emergency department and feels somewhat better but still has tenderness right upper quadrant. Surgery was consulted for possible cholecystitis. Patient denies constitutional symptoms. Past Medical History Cardiac Medical History: Reports: Hypertension Neurological Medical History: Reports: Migraine, Other - Generalized anxiety disorder depression Psychiatric Medical History: Reports: Attention Deficit Hyperactivity Disorder Past Surgical History Past Surgical History: Reports: Section - 2005, Tubal Ligation, Other - Breast reduction surgery 2016 Social History Smoking Status: Current Every Day Smoker Hx Prescription Drug Abuse: No Family History Family History: Reviewed & Not Pertinent Family History: Significant for breast cancer in aunt age 50 Parental Family History Reviewed: Yes Children Family History Reviewed: Yes Sibling(s) Family History Reviewed.: Yes Medication/Allergy Home Medications: Dextroamphetamine/Amphetamine [Adderall 20 mg Tablet] 3 tab PO DAILY 05/29/13 Hydrochlorothiazide 12.5 mg PO DAILY #30 capsule 02/11/16 Fluoxetine HCl [Prozac 20 mg Capsule] 40 mg PO DAILY 12/17/17 Zolpidem Tartrate [Ambien] 10 mg PO QHS 12/17/17 Hydroxyzine Pamoate [Vistaril 50 mg Capsule] 50 mg PO DAILY #14 capsule Lisinopril 10 mg PO DAILY #7 tablet 12/18/17 Allergies/Adverse Reactions: No Known Allergies Allergy (Verified 12/16/17 15:00) Review of Systems Constitutional: ABSENT: chills, fever(s), headache(s), weight gain, weight loss Eyes: ABSENT: visual disturbances Ears: ABSENT: hearing changes Cardiovascular: ABSENT: chest pain, dyspnea on exertion, edema, orthropnea, palpitations Respiratory: ABSENT: cough, hemoptysis Gastrointestinal: PRESENT: as per HPI, other - Patient never had a colonoscopy Genitourinary: PRESENT: other - Patient still having periods Musculoskeletal: ABSENT: joint swelling Neurological: ABSENT: abnormal gait, abnormal speech, confusion, dizziness, focal weakness, syncope Psychiatric: PRESENT: other - Anxiety issues. ABSENT: anxiety, depression, homidical ideation, suicidal ideation Physical Exam Vital Signs: Temp Pulse Resp BP Pulse Ox 98.3 F 85 18 139/87 H 100 03/27/18 02:29 03/26/18 22:04 03/27/18 03:01 03/27/18 03:01 03/27/18 03:01 Intake & Output 03/25/18 03/26/18 03/27/18 06:59 06:59 06:59 Weight 71.3 kg General appearance: PRESENT: mild distress Head exam: PRESENT: normocephalic Eye exam: PRESENT: EOMI Mouth exam: PRESENT: dry mucosa Neck exam: PRESENT: full ROM Respiratory exam: PRESENT: unlabored Cardiovascular exam: PRESENT: RRR Pulses: PRESENT: normal carotid pulses, normal radial pulses, normal femoral pulses GI/Abdominal exam: PRESENT: other - Tender right upper quadrant with mild guarding Rectal exam: PRESENT: deferred Musculoskeletal exam: PRESENT: ambulatory Neurological exam: PRESENT: alert, awake, oriented to person, oriented to place Psychiatric exam: PRESENT: agitated Results Laboratory Results: 03/26/18 23:37 03/26/18 23:37 03/26/18 03/26/18 03/26/18 23:30 23:37 23:37 WBC 7.0 RBC 4.36 Hgb 12.7 Hct 38.2 MCV 88 MCH 29.2 MCHC 33.3 RDW 17.5 H Plt Count 413 Seg Neutrophils % 53.2 Lymphocytes % 37.0 Monocytes % 7.7 Eosinophils % 0.6 Basophils % 1.5 Absolute Neutrophils 3.7 Absolute Lymphocytes 2.6 Absolute Monocytes 0.5 Absolute Eosinophils 0.0 Absolute Basophils 0.1 Sodium 141.5 Potassium 3.6 Chloride 109 H Carbon Dioxide 21 L Anion Gap 12 BUN 10 Creatinine 0.83 Est GFR ( Amer) > 60 Est GFR (Non-Af Amer) > 60 Glucose 83 Calcium 9.5 Total Bilirubin 0.4 AST 29 ALT 19 Alkaline Phosphatase 31 L Total Protein 7.8 Albumin 4.6 Lipase 98.5 Serum HCG, Qual Urine Color STRAW Urine Appearance CLEAR Urine pH 6.0 Ur Specific [place] 1.013 Urine Protein NEGATIVE Urine Glucose (UA) NEGATIVE Urine Ketones NEGATIVE Urine Blood SMALL H Urine Nitrite NEGATIVE Ur Leukocyte Esterase SMALL H Urine WBC (Auto) 2 Urine RBC (Auto) 1 03/26/18 23:37 WBC RBC Hgb Hct MCV MCH MCHC RDW Plt Count Seg Neutrophils % Lymphocytes % Monocytes % Eosinophils % Basophils % Absolute Neutrophils Absolute Lymphocytes Absolute Monocytes Absolute Eosinophils Absolute Basophils Sodium Potassium Chloride Carbon Dioxide Anion Gap BUN Creatinine Est GFR ( Amer) Est GFR (Non-Af Amer) Glucose Calcium Total Bilirubin AST ALT Alkaline Phosphatase Total Protein Albumin Lipase Serum HCG, Qual NEGATIVE Urine Color Urine Appearance Urine pH Ur Specific [place] Urine Protein Urine Glucose (UA) Urine Ketones Urine Blood Urine Nitrite Ur Leukocyte Esterase Urine WBC (Auto) Urine RBC (Auto) Impressions: Abdomen Ultrasound 03/26/18 23:22 IMPRESSION: Sludge versus small stones in the gallbladder. No thickening of the gallbladder wall. Assessment & Plan - Diagnosis (1) Cholecystitis with cholelithiasis Qualifiers: Cholelithiasis location: gallbladder Cholecystitis acuity: acute and chronic Biliary obstruction: without biliary obstruction Qualified Code(s): K80.12 - Calculus of gallbladder with acute and chronic cholecystitis without obstruction Is this a current diagnosis for this admission?: Yes Plan: Impression: Symptomatic cholelithiasis with cholecystitis 47-year-old Afro- [place] female. Remains tender despite pain medication; deserves surgical intervention Recommendations: 1. We will keep n.p.o., IV fluids, intravenous antibiotics 2. We will set her up for interval cholecystectomy, laparoscopic versus open; patient will be admitted to the surgical service, likely by Dr. Germán Spearsss was explained to the patient (2) Smoker Is this a current diagnosis for this admission?: Yes - Time Time Spent: 30 to 50 Minutes Critical Time spent with patient: 15-24 minutes Anticipated discharge: Home - Inpatient Certification Based on my medical assessment, after consideration of the patient's comorbidities, presenting symptoms, or acuity I expect that the services needed warrant INPATIENT care.: Yes I certify that my determination is in accordance with my understanding of Medicare's requirements for reasonable and necessary INPATIENT services [42 CFR 412.3e].: Yes Medical Necessity: Need For IV Fluids, Need for IV Antibiotics, Need for Surgery
[2018-03-27] MEDS ORDERED: CEFAZOLIN 1 GM/D5W RTU 1 GM/50 ML RTUPB IV ONE (05:00)
[2018-03-27] MEDS ORDERED: MORPHINE SULFATE 10 MG/ML INJ ONE (08:14)
[2018-03-27] MEDS ORDERED: MORPHINE SULFATE 10 MG/ML INJ IV PRN (08:23)
--- NOTE | 2018-03-27 09:19 | PDOC PROGRESS REPORT ---
Subjective Progress Note for:: 03/27/18 Subjective:: This is a 47-year-old female with acute cholecystitis. She continues to experience pain and nausea. Reason For Visit: CHOLECYSTITIS Physical Exam Vital Signs: Temp Pulse Resp BP Pulse Ox 98.6 F 74 17 152/89 H 100 03/27/18 07:57 03/27/18 07:57 03/27/18 07:57 03/27/18 07:57 03/27/18 07:57 Intake & Output 03/26/18 03/27/18 03/28/18 06:59 06:59 06:59 Weight 71.3 kg General appearance: PRESENT: mild distress Head exam: PRESENT: atraumatic, normocephalic Eye exam: PRESENT: EOMI, PERRLA. ABSENT: conjunctival injection, scleral icterus Mouth exam: PRESENT: moist, neck supple Teeth exam: ABSENT: dental caries, poor dentation Neck exam: ABSENT: lymphadenopathy, meningismus, tenderness, thyromegaly, tracheal deviation Respiratory exam: PRESENT: clear to auscultation anselmo. ABSENT: crackles, rales, rhonchi, stridor, tachypnea, wheezes Cardiovascular exam: PRESENT: RRR Pulses: PRESENT: normal radial pulses Vascular exam: PRESENT: normal capillary refill. ABSENT: pallor GI/Abdominal exam: PRESENT: guarding - Right upper quadrant, Estevez's sign, soft , tenderness. ABSENT: distended Rectal exam: PRESENT: deferred Extremities exam: ABSENT: joint swelling, pedal edema Musculoskeletal exam: PRESENT: normal inspection Neurological exam: PRESENT: alert, awake, oriented to person, oriented to place , oriented to time, oriented to situation Psychiatric exam: PRESENT: appropriate affect. ABSENT: agitated, anxious, depressed Skin exam: ABSENT: cyanosis, erythema, jaundice Results Impressions: Abdomen Ultrasound 03/26/18 23:22 IMPRESSION: Sludge versus small stones in the gallbladder. No thickening of the gallbladder wall. Assessment & Plan - Diagnosis (1) Cholecystitis with cholelithiasis Qualifiers: Cholelithiasis location: gallbladder Cholecystitis acuity: acute and chronic Biliary obstruction: without biliary obstruction Qualified Code(s): K80.12 - Calculus of gallbladder with acute and chronic cholecystitis without obstruction Is this a current diagnosis for this admission?: Yes - Plan Summary Plan Summary: This is a 47-year-old female with acute cholecystitis. Plan for cholecystectomy today. Risks and benefits of the operation were discussed at length with the patient. Informed consent was obtained, and all questions were answered.
[2018-03-27] MEDS ORDERED: BUPIVACAINE HCL 0.25 % INJ/PF (2.5 MG/1 ML) 30 ML VIAL ONE (09:32)
[2018-03-27] MEDS ORDERED: FENTANYL CITRATE INJ/PF 100 MCG/2 ML AMPUL ONE ×2 (09:48→11:24)
[2018-03-27] MEDS ORDERED: MIDAZOLAM 2 MG/2 ML INJ ONE (09:48)
[2018-03-27] MEDS ORDERED: HYDROMORPHONE HCL INJ/PF 2 MG/ML AMPULE ONE (09:49)
[2018-03-27] MEDS ORDERED: PROPOFOL INJ 200 MG/20 ML VIAL IV ONE (09:49)
[2018-03-27] MEDS ORDERED: ACETAMINOPHEN 100 ML IV ONE (09:49)
[2018-03-27] MEDS ORDERED: FENTANYL CITRATE INJ/PF 100 MCG/2 ML AMPUL IV PRN ×2 (10:26)
[2018-03-27] MEDS ORDERED: DIPHENHYDRAMINE HCL 50 MG/ML VIAL IV PRN (10:26)
[2018-03-27] MEDS ORDERED: MEPERIDINE HCL/PF INJ 25 MG/1 ML DISP.SYRIN IV PRN (10:26)
[2018-03-27] MEDS ORDERED: OXYCODONE-ACETAMINOPHEN 5-325 MG TABLET PO PRN ×2 (10:26)
[2018-03-27] MEDS ORDERED: PROMETHAZINE HCL INJ 25 MG/1 ML VIAL IV PRN ×2 (10:26)
--- NOTE | 2018-03-27 11:21 | Operative Report ---
Nonrecallable Operative Report DATE OF SURGERY: 03/27/18 PREOPERATIVE DIAGNOSIS: Acute cholecystitis POSTOPERATIVE DIAGNOSIS: Same as above OPERATION: Laparoscopic cholecystectomy SURGEON: LANCE OCHOA ANESTHESIA: GA TISSUE REMOVED OR ALTERED: Gallbladder COMPLICATIONS: None apparent ESTIMATED BLOOD LOSS: 25 cc PROCEDURE: Drains/implants: None. After informed consent was obtained, the patient was laid in the supine position. The area of the abdomen was prepped and draped in normal sterile fashion. A 15 blade scalpel was used to create an infraumbilical incision. Dissection was carried through the subcutaneous tissue using sharp and blunt dissection. The cicatrix was identified and retracted anteriorly. The linea alba fascia was incised sharply. The abdomen was entered sharply. The balloon trocar was inserted and pneumoperitoneum was achieved. A 5 mm subxiphoid port was placed under direct laparoscopic visualization. 2 more 5 mm ports were placed in the right upper quadrant in similar fashion. Atraumatic graspers were placed through the 5 mm ports. The gallbladder was retracted cephalad and laterally. Dissection was begun in the triangle of Calot. Cystic duct and cystic artery were fully visualized and skeletonized, seeing the liver through the triangle. Once the critical view of safety was obtained, the cystic duct and cystic artery were clipped and cut with laparoscopic instruments. The gallbladder was then removed from the liver using Bovie electrocautery. The gallbladder was placed into an Endo Catch bag and pulled out through the umbilicus. Once this was completed, the hilum was inspected. It was found to be free of any leakage of blood or bile. The abdomen was then copiously irrigated and suctioned until the effluent was clear. The 5 mm trochars were then removed under direct laparoscopic visualization. The infraumbilical trocar was removed, and pneumoperitoneum was relieved. The infraumbilical fascia was closed using 0 Vicryl suture in [id number] fashion. The overlying skin was closed using 4-0 Vicryl Rapide suture in subcuticular fashion. All sponge, instrument, and needle counts were correct 2. Condition: Stable.
[2018-03-27] MEDS: FENTANYL CITRATE INJ/PF 100 MCG/2 ML AMPUL IV PRN ×2 (11:25→11:40)
[2018-03-27] MEDS ORDERED: GLYCOPYRROLATE INJ 0.4 MG/2 ML VIAL ONE (13:27)
[2018-03-27] MEDS ORDERED: NEOSTIGMINE METHYLSULFATE 10 MG/10 ML VIAL ONE (13:27)
[2018-03-27] MEDS ORDERED: KETOROLAC TROMETHAMINE 60 MG/2 ML SDV ONE (13:27)
[2018-03-27] MEDS ORDERED: DEXAMETHASONE SOD PHOSPHATE INJ 4 MG/1 ML VIAL ONE (13:27)
[2018-03-27] MEDS ORDERED: METOCLOPRAMIDE HCL INJ/PF 10 MG/2 ML SDV ONE (13:27)
[2018-03-27] MEDS ORDERED: LIDOCAINE 2% INJ-PF (20 MG/ML) 2 ML AMPUL ONE (13:27)
[2018-03-27] MEDS ORDERED: ONDANSETRON HCL INJ/PF 4 MG/2 ML SDV ONE (13:27)
[2018-03-27] MEDS ORDERED: ROCURONIUM BROMIDE INJ 50 MG/5 ML VIAL IV ONE (13:27)
[2018-03-27] MEDS ORDERED: CEFAZOLIN 1 GM/D5W RTU 1 GM/50 ML RTUPB IV SCH (14:00)
[2018-03-27] MEDS: HYDROCODONE/ACETAMINOPHEN 10-325 MG TABLET PO PRN ×2 (16:30→20:41)
[2018-03-28] MEDS: HYDROCODONE/ACETAMINOPHEN 10-325 MG TABLET PO PRN ×3 (01:09→12:30)
--- NOTE | 2018-03-28 07:02 | PDOC DISCHARGE SUMMARY ---
General - Admit/Disc Date/PCP Admission Date/Primary Care Provider: 03/27/18 04:43 Discharge Date: 03/28/18 - Discharge Diagnosis (1) Cholecystitis with cholelithiasis Is this a current diagnosis for this admission?: Yes - Additional Information Resuscitation Status: Full Code Discharge Diet: As Tolerated Discharge Activity: No Lifting Over 10 Pounds Prescriptions: Hydrocodone/Acetaminophen [[place] 10-325 mg Tablet] 1 tab PO Q4HP PRN #40 tablet PRN Reason: For Pain Scale 3-4 Home Medications: Alprazolam [Xanax] 1 mg PO Q6 03/27/18 Bupropion HCl [Bupropion Xl] 150 mg PO QAM 03/27/18 Dextroamphetamine/Amphetamine [Adderall 20 mg Tablet] 20 mg PO DAILY@1200 Dextroamphetamine/Amphetamine [Adderall 20 mg Tablet] 40 mg PO QAM 03/27/18 Lisinopril/Hydrochlorothiazide [Lisinopril-Hctz 10-12.5 mg Tab] 1 tab PO DAILY 03/27/18 Oxycodone HCl [Oxycodone HCl 10 MG Tablet] 10 mg PO Q6HP PRN 03/27/18 Zolpidem Tartrate [Ambien] 20 mg PO QHS 03/27/18 Hydrocodone/Acetaminophen [[place]ristow 10-325 mg Tablet] 1 tab PO Q4HP PRN #40 tablet 03/28/18 History of Present Illness Patient complains of: Right upper quadrant pain History of Present Illness: ALEKSANDRA ARDON is a 47 year old female presented to the emergency department with unrelenting right upper quadrant abdominal pain. She also experienced nausea. She was found to have gallstones and admitted for acute cholecystitis. Patient was started on antibiotics. Hospital Course Hospital Course: The patient was taken to the operating room on 03/27/2018 for laparoscopic cholecystectomy. Her surgery went well. She was taken to the floor in stable condition. Afterwards, she began tolerating a diet. Her pain is controlled with oral pain medications, she is ambulating, she is tolerating a diet, and it was felt that she had reached maximal hospital benefit and is fit for discharge. Physical Exam Vital Signs: Temp Pulse Resp BP Pulse Ox 98.4 F 75 15 131/73 H 100 03/28/18 03:28 03/28/18 03:28 03/28/18 03:28 03/28/18 03:28 03/28/18 03:28 Intake & Output 03/26/18 03/27/18 03/28/18 06:59 06:59 06:59 Intake Total 2950 Output Total 1810 Balance 1140 Weight 71.3 kg 71 kg Results Impressions: Abdomen Ultrasound 03/26/18 23:22 IMPRESSION: Sludge versus small stones in the gallbladder. No thickening of the gallbladder wall. Qualifiers - * PATIENT BEING DISCHARGED WITH ANY OF THE FOLLOWING DIAGNOSIS: No Plan Discharge Plan: Discharge to home. Time Spent: Less than 30 Minutes
[2018-03-28 13:01] VITALS: BP 137/107
== END 2018-03-28 13:45 | disposition home or self-care (01) ==
LOC: ER 21:49 → EH 03-27 04:43 → 2N 03-27 05:45
PROVIDERS: ATTEND Surgery
PROC: 0FT44ZZ Resection of Gallbladder, Percutaneous Endoscopic Approach (ICD-10-PCS; principal; 2018-03-27 10:00)
DX: K81.1 Chronic cholecystitis (principal); F17.210 Nicotine dependence, cigarettes, uncomplicated; F90.9 Attention-deficit hyperactivity disorder, unspecified type; I10 Essential (primary) hypertension; F41.9 Anxiety disorder, unspecified; R45.1 Restlessness and agitation; Z98.51 Tubal ligation status; Z79.899 Other long term (current) drug therapy
CPT/HCPCS: 96376; 99285; 96361; 96375; 96365; 96367; 36415; 83690; 84703; 85025; 80053; 81001; 88304 ×2; 76705; 47562; J2250; J0690; J3490 ×3; J1100; J1885 ×2; J3010 ×2; J2765; J2270; J1170; J2405 ×2; S0020; J7030; J7120; J2704; J2543; J0131; 790

== ENCOUNTER 2018-04-14 15:35 | Emergency (ER) | payer MEDICAID ==
--- NOTE | 2018-04-14 15:43 | ER Document Report ---
ED Psych Disorder / Suicide - General Chief Complaint: Overdose Stated Complaint: OVERDOSE Time Seen by Provider: 04/14/18 15:40 Notes: The patient is a 47-year-old female, past medical history prior suicide attempts , presents by EMS after she intentionally overdosed on 200 mg Ambien, 100 mg Topamax and 500 gabapentin at 1430 today. She says she is under a lot of stress at work at [employer]. She had a similar episode in November this year that occurred after increased stress at work. Patient is the one who called 911. Patient is sleepy, but denies any pain. Looking through her pill bottles, she is also missing a 68 Xanax and all her Adderall. TRAVEL OUTSIDE OF THE [place] IN LAST 30 DAYS: No - Related Data Allergies/Adverse Reactions: No Known Allergies Allergy (Verified 12/16/17 15:00) Past Medical History - General Information source: Patient, Emergency Med Personnel - Social History Smoking Status: Current Every Day Smoker Drug Abuse: Cocaine, Marijuana Family History: Reviewed & Not Pertinent - Past Medical History Cardiac Medical History: Reports: Hx Hypertension Neurological Medical History: Reports: Hx Migraine Renal/ Medical History: Denies: Hx Peritoneal Dialysis Skin Medical History: Reports Hx Cellulitis Psychiatric Medical History: Reports: Hx Attention Deficit Hyperactivity Disorder Past Surgical History: Reports: Hx Section - 2005, Hx Tubal Ligation, Other - Breast reduction surgery 2017 - Immunizations Immunizations up to date: No Hx Diphtheria, Pertussis, Tetanus Vaccination: Yes Review of Systems - Review of Systems Notes: REVIEW OF SYSTEMS: CONSTITUTIONAL: -fevers, -chills EENT: -eye pain, -difficulty swallowing, -nasal congestion CARDIOVASCULAR: -chest pain, -syncope. RESPIRATORY: -cough, -SOB GASTROINTESTINAL: -abdominal pain, -nausea, -vomiting, -diarrhea GENITOURINARY: -dysuria, -hematuria MUSCULOSKELETAL: -back pain, -neck pain SKIN: -rash or skin lesions. HEMATOLOGIC: -easy bruising or bleeding. LYMPHATIC: -swollen, enlarged glands. NEUROLOGICAL: -loss of consciousness, -headache, -neurologic symptoms PSYCHIATRIC: -anxiety, +depression. ALL OTHER SYSTEMS REVIEWED AND NEGATIVE. Physical Exam - Vital signs Vitals: Resp 14 04/14/18 15:40 - Notes Notes: PHYSICAL EXAMINATION: GENERAL: Well-appearing, well-nourished and in no acute distress. Sleepy, but will hold a conversation. HEAD: Atraumatic, normocephalic. EYES: Pupils equal round and reactive to light, extraocular movements intact, sclera anicteric, conjunctiva are normal. ENT: nares patent, oropharynx clear without exudates. Moist mucous membranes. NECK: Normal range of motion, supple without lymphadenopathy LUNGS: Breath sounds clear to auscultation bilaterally and equal. No wheezes rales or rhonchi. HEART: Regular rate and rhythm without murmurs ABDOMEN: Soft, nontender, normoactive bowel sounds. No guarding, no rebound. No masses appreciated. EXTREMITIES: Normal range of motion, no pitting or edema. No cyanosis. NEUROLOGICAL: Cranial nerves grossly intact. Slurred speech. Normal sensory and motor exams. PSYCH: Admits to intentionally harming herself. SKIN: Warm, Dry, normal turgor, no rashes or lesions noted. Course - Re-evaluation Re-evalutation: 04/14/18 15:00 Pt is protecting her airway and in no respiratory distress. Will continue to observe, as no antidotes are indicated for her medications that she possibly overdosed on. She was placed on end-tidal CO2 and she remained breathing normally. Placed her on IVC hold and will have mental health evaluate patient when she is medically cleared. Poison control already contacted and recommends monitoring her respiratory status. Pt reevaluated multiple times in the ER and she continues to have no respiratory depression. Will continue to monitor. - Vital Signs Vital signs: Temp Pulse Resp BP Pulse Ox 15 152/99 H 100 04/14/18 19:21 04/14/18 19:21 04/14/18 19:21 - Laboratory Result Diagrams: 04/14/18 15:50 04/14/18 15:50 Laboratory results interpreted by me: 04/14/18 04/14/18 15:50 15:50 RBC 3.52 L Hgb 10.3 L Hct 31.2 L RDW 16.3 H Lymphocytes % 45.2 H Sodium 145.5 H Chloride 114 H Alkaline Phosphatase 28 L Salicylates < 1.0 L Acetaminophen < 10 L - EKG Interpretation by [facility] EKG shows normal: Sinus rhythm, [place], Intervals, QRS Complexes, ST-T Waves Rate: Normal Critical Care Note - Critical Care Note Total time excluding time spent on procedures (mins): 35 Discharge - Discharge Clinical Impression: Overdose Qualifiers: Encounter type: initial encounter Injury intent: intentional self-harm Qualified Code(s): T50.902A - Poisoning by unspecified drugs, medicaments and biological substances, intentional self-harm, initial encounter Condition: Stable
[2018-04-14 16:04] LABS: ABSOLUTE BASOPHILS # (AUTO) 0.1 10^3/uL (0.0-0.2); ABSOLUTE MONOCYTES (AUTO) 0.4 10^3/uL (0.1-1.4); ABSOLUTE NEUT (AUTO) 1.8 10^3/uL (1.7-8.2); BASOPHILS % (AUTO) 1.5 % (0-2); EOSINOPHILS % (AUTO) 0.9 % (0-6); HEMATOCRIT 31.2 % (36.0-47.0); HEMOGLOBIN 10.3 g/dL (12.0-15.5); LYMPHOCYTES % (AUTO) 45.2 % (13-45); MEAN CORPUSCULAR HEMOGLOBIN 29.3 pg (27.0-33.4); MEAN CORPUSCULAR HGB CONC 32.9 g/dL (32.0-36.0); MEAN CORPUSCULAR VOLUME 89 fl (80-97); MONOCYTES % (AUTO) 10.4 % (3-13); PLATELET COUNT 360 10^3/uL (150-450); RED BLOOD COUNT 3.52 10^6/uL (3.72-5.28); RED CELL DISTRIBUTION WIDTH 16.3 % (11.5-14.0); TOTAL CELLS COUNTED % (AUTO) 100 %; WHITE BLOOD COUNT 4.3 10^3/uL (4.0-10.5)
[2018-04-14 16:23] LABS: ALANINE AMINOTRANSFERASE 21 U/L (9-52); ALBUMIN 3.8 g/dL (3.5-5.0); ALKALINE PHOSPHATASE 28 U/L (38-126); ANION GAP 10 (5-19); ASPARTATE AMINO TRANSFERASE 22 U/L (14-36); BILIRUBIN,DIRECT 0.2 mg/dL (0.0-0.4); BILIRUBIN,TOTAL 0.2 mg/dL (0.2-1.3); BLOOD UREA NITROGEN 16 mg/dL (7-20); CALCIUM 9.1 mg/dL (8.4-10.2); CARBON DIOXIDE 22 mmol/L (22-30); CHLORIDE 114 mmol/L (98-107); GLUCOSE 82 mg/dL (75-110); SODIUM 145.5 mmol/L (137-145); TOTAL PROTEIN 6.7 g/dL (6.3-8.2)
[2018-04-14 16:27] LABS: ACETAMINOPHEN < 10 ug/mL (10-30); ALCOHOL < 10 mg/dL (NONE DETECTED); POTASSIUM 3.9 mmol/L (3.6-5.0); SALICYLATE < 1.0 mg/dL (2.0-20.0)
--- NOTE | 2018-04-14 16:33 | EKG REPORT ---
SEVERITY:- NORMAL ECG - SINUS RHYTHM : Confirmed by: Jerrell Diaz MD 14-Apr-2018 16:32:50
--- NOTE | 2018-04-14 17:38 | PSYCHOLOGICAL NOTE ---
Psych Note - Psych Note Psych Note: Reason for consult: Intentional OD Contact permissions: Unknown Patient is a 47 year old female who presented to the ED today via EMS for an intentional OD (Ambien, Xanax, Topomax). Attending Doctor requested a full IVC and stated patient could be seen in the AM given grogginess and need for monitoring. Attending Nurse presented a bag of medications patient had. Of importance was Topomax, had the name of who prescribed to blacked out with marker (not patient' s), there were two bottles, one was filled back in May 2017, one had 30 of 60 left and the other had a handful of 90 left. Also there was a generic version of Adderall filled 04/07/18 with 1 of 90 left and another bottle that was empty. There was Xanax filled 04/07/18 with 1.5 of 60 left. Per nurse patient stated her sister took her Xanax. Finally there was Ambien filled on 04/07/18 with 0 of 15 left. Per nurse patient reported taking all of it. Nurse identified patient is "sleepy." Chart review noted patient was seen at the end of November 2017 for an intentional OD, was kept for 3 days at [facility] in the ED and had diagnoses related to polysubstance use. Diagnosis: Overdose Polysubstance by History Impression/Plan: Per attending doctor's request patient was put on a full IVC given reported intentional OD, has to be monitored, and grogginess. Will conduct full assessment tomorrow. Consulted with Dr. Yi regarding the management and care of patient.
[2018-04-15 08:52] LABS: AMORPHOUS SEDIMENT,URINE 1+ /HPF; APPEARANCE,URINE TURBID; BILIRUBIN,URINE NEGATIVE (NEGATIVE); COLOR,URINE YELLOW; GLUCOSE, URINE NEGATIVE (NEGATIVE); KETONES,URINE NEGATIVE (NEGATIVE); LEUKOCYTE ESTERASE,URINE LARGE (NEGATIVE); NITRITE,URINE NEGATIVE (NEGATIVE); PROTEIN,URINE NEGATIVE (NEGATIVE); URINE SPECIFIC GRAVITY 1.014; UROBILINOGEN,URINE NEGATIVE mg/dL (<2.0)
[2018-04-15 09:02] LABS: URINE AMPHETAMINES SCREEN NEGATIVE; URINE BARBITURATES SCREEN NEGATIVE; URINE BENZODIAZEPINES SCREEN UNCONFIRMED POSITIVE; URINE COCAINE SCREEN UNCONFIRMED POSITIVE; URINE MARIJUANA (THC) SCREEN UNCONFIRMED POSITIVE; URINE METHADONE SCREEN NEGATIVE; URINE PHENCYCLIDINE SCREEN NEGATIVE
--- NOTE | 2018-04-15 10:18 | ER Document Report ---
Doctor's Note Notes: 04/15/18 10:17 This is a follow-up evaluation: Primary diagnosis-overdose Patient is here for the above reason, has been doing well, currently has --- complaint. On examination-vitals reviewed in the chart. General exam: Alert oriented 3 not in any acute distress HEENT: Normocephalic atraumatic pupils are equal reactive to light, Lungs-clear breath sounds no rales or wheezing. Cardiovascular system: Normal S1-S2 no murmurs. Gastrointestinal: Normal breath sounds, no organomegaly positive bowel sounds. Genitourinary: Skin: No lesions noted, no rash Psychiatric: Overdosed, because she could not take the stresses, want to end her life. Suicidal ideation Diagnoses: Overdose, suicidal ideation Plan: Awaiting mental health
[2018-04-15] MEDS ORDERED: BUPROPION HCL 100 MG TABLET PO SCH (10:45)
[2018-04-15] MEDS ORDERED: BENZTROPINE MESYLATE 1 MG TABLET PO SCH (10:45)
[2018-04-15] MEDS ORDERED: FLUOXETINE HCL 20 MG CAPSULE PO SCH (10:45)
[2018-04-15] MEDS ORDERED: KETOROLAC TROMETHAMINE 60 MG/2 ML SDV IM ONE (10:51)
[2018-04-15] MEDS ORDERED: BUPROPION HCL 100 MG TABLET PO ONE (11:00)
--- NOTE | 2018-04-15 13:36 | PSYCHOLOGICAL NOTE ---
Psych Note - Psych Note Psych Note: Reason for consult: Re-evaluation however initial assessment with patient, IVC, OD Contact permission: Unknown Patient is a 47 year old female who was brought in via EMS yesterday for an intentional OD and subsequently petitioned for IVC by the attending ED Physician. She had been groggy so only obtained chart review and collateral from attending ED Physician and Nurse yesterday. Today patient admitted to an intentional OD due to stress surrounding her job. She was unable to explain ( form sentences) job situation. She quickly became tearful and seemed unable to manage the crying given she could not move forward with answering questions. She reported "I'm not doing good, I'm really sad and really depressed, I'm just sad." She identified she called after she informed her she had taken the medications and showed him the empty bottles but his reaction was she was "overreacting." She further noted she started seeing black dots so called . She claimed she took Ambien, Xanax (both of which were hers) and Topomax (a friend gave to her). She said she had wanted to kill herself, kind of wished she would have , but she thought of her young daughter. She stated "I kept seeing her face, I want to be here for her, I was selfish, but if I didn't have her I would not have called ." She reported "I feel just like I did yesterday but cannot stop thinking about my little girl." She acknowledged she has seen [facility]OR[facility] Pittman for medication management 2-3 times with the only change in medication being discontinued Prozac and added Wellbutrin. She reported she had previously gone to [facility] where she saw Sharon Hall for 10 years, had seen another male provider there but was discharged from services after she "must have been rude waiting for awhile in their lobby waiting to be seen." Patient did not mention SA however UDS was positive for Benzodiazepines (prescribed), Cocaine and Cannabis (latter two she has been positive for previous visits). She denied previous MH hospitalizations. She reported diagnoses of ADHD, Insomnia, Depression and Bipolar. Patient was alert and oriented to person, place and situation. Mood was depressed with congruent affect as evidenced by crying and unable to control it. Note this may be from coming down off substances (the reported Xanax/Ambien/ Topomax OD, Cocaine, Cannabis). She admitted to this being a suicide attempt but thought of her daughter, as well still feeling the way she did yesterday but wanting to be here for her daughter. She denied HI and this was not a presenting concern. She did not appear to be responding to internal stimuli as evidenced by fair eye contact and trying to answer questions when addressed. Thought processes were slow and she seemed to have difficulty finding words to express and explain self (again may be from coming down off substances). Conversational speech was soft in tone and slow in rate. Intellectual abilities are estimated to be average. Insight, judgment and impulse control were poor given continued lethargy and grogginess. Diagnosis: Polysubstance current and by history (also from the November 2017 visit) 304.20 (F14.20) Cocaine Use Disorder, Severe 304.30 (F12.20) Cannabis Use Disorder, Severe 311 (F32.9) Unspecified Depressive Disorder R/O 296.80 (F31.9) Unspecified Bipolar and related Disorder Impression/Plan: Recommendation to maintain IVC. Patient presented tearful and unable to form complete thoughts/sentences to explain what she identified as her stressor surrounding job. Her UDS was positive for Cocaine, Cannabis and Benzodiazepines. She reported an OD of Ambien, Xanax and Topomax. Given her altered, groggy state want to allow time to become sober and more alert and oriented. She is likely coming off all the substances which could account for the depressed mood with tearful affect. Provided medication adjustments to help stabilize patient. Will reassess tomorrow morning. Consulted with Dr. Yi regarding the management and care of patient. ED Physician in agreement with recommendations. Medication recommendations made by the psychiatric medical provider, Dr. Dennis GUDINO, includes: Discontinue Ambien 20MG at night for sleep Discontinue Adderall 40MG in the morning for ADHD Discontinue Adderall 20MG at noon for ADHD Discontinue Xanax 1MG every 6 hours for anxiety Decrease Wellbutrin to 50MG daily for seven days then discontinue for depression but switching to another antidepressant Add Zyprexa 5MG twice a day for mood stabilization and impulse control Add Cogentin 1MG daily to prevent tremors from antipsychotic medications Add Buspar 5MG twice a day for anxiety, sleep Add Prozac 20MG daily for depression
[2018-04-15] MEDS: OLANZAPINE 5 MG TABLET PO SCH (17:45)
[2018-04-15] MEDS: BUSPIRONE HCL 10 MG TABLET PO SCH (17:45)
[2018-04-15] MEDS ORDERED: DIPHENHYDRAMINE HCL 50 MG CAPSULE PO ONE (22:40)
--- NOTE | 2018-04-16 09:42 | ER Document Report ---
Doctor's Note Notes: 04/16/18 09:42 This is a follow-up evaluation: Primary diagnosis-overdose Patient is here for the above reason, has been doing well, currently has --- complaint. On examination-vitals reviewed in the chart. General exam: Alert oriented 3 not in any acute distress HEENT: Normocephalic atraumatic pupils are equal reactive to light, Lungs-clear breath sounds no rales or wheezing. Cardiovascular system: Normal S1-S2 no murmurs. Gastrointestinal: Normal breath sounds, no organomegaly positive bowel sounds. Genitourinary: Skin: No lesions noted, no rash Psychiatric: Overdosed, because she could not take the stresses, want to end her life. Suicidal ideation Diagnoses: Overdose, suicidal ideation Plan: Awaiting mental health
[2018-04-16] MEDS ORDERED: BUPROPION HCL 100 MG TABLET PO SCH (10:00)
[2018-04-16] MEDS: OLANZAPINE 5 MG TABLET PO SCH (10:05)
[2018-04-16] MEDS: BUSPIRONE HCL 10 MG TABLET PO SCH (10:05)
[2018-04-16 14:01] VITALS: BP 133/85
--- NOTE | 2018-04-16 17:03 | PSYCHOLOGICAL NOTE ---
Psych Note - Psych Note Psych Note: Reason for consult: 2nd Re-evaluation, IVC, OD Contact permission: Unknown Patient is a 47 year old female who in the ED on IVC for an intentional overdose of Ambien, Xanax and Topomax. A new medication regimen was started yesterday. She requested a shower today (tending to daily needs is a sign of improvement/stabilization). She had a brighter affect though still depressed mood. Diagnosis: Polysubstance current and by history (also from the November 2017 visit) 304.20 (F14.20) Cocaine Use Disorder, Severe 304.30 (F12.20) Cannabis Use Disorder, Severe 311 (F32.9) Unspecified Depressive Disorder R/O 296.80 (F31.9) Unspecified Bipolar and related Disorder Impression/Plan: Informed by medical staff that patient was more interactive and engaged. She asked for a shower. She did appear to have brighter affect. Before this clinician could reassess patient face to face she was accepted to [facility]. Will move forward with the acceptance as an IVC given patient's OD attempt, polysubstance use and the fact medication changes just took place yesterday. Consulted with Dr. Yi regarding the management and care of patient. ED Physician in agreement with recommendation.
== END 2018-04-16 14:30 | disposition short-term general hospital (02) ==
LOC: ER 15:35
DX: T42.6X2A Poisoning by other antiepileptic and sedative-hypnotic drugs, intentional self-harm, initial encounter (principal); F43.9 Reaction to severe stress, unspecified; F12.10 Cannabis abuse, uncomplicated; F14.10 Cocaine abuse, uncomplicated; F17.200 Nicotine dependence, unspecified, uncomplicated; I10 Essential (primary) hypertension; F32.9 Major depressive disorder, single episode, unspecified
CPT/HCPCS: 93005; 99291; 96372; 36415; 80307 ×4; 84703; 85025; 80053; 81001; 93010; J3490 ×9; J1885

== ENCOUNTER 2018-06-07 02:44 | Emergency (ER) | payer MEDICAID ==
--- NOTE | 2018-06-07 03:01 | ER Document Report ---
ED General - General Mode of Arrival: Medic Information source: Patient TRAVEL OUTSIDE OF THE [place] IN LAST 30 DAYS: No <EVGENY KRAFT - Last Filed: 06/07/18 03:53> <KOREY MCKEON - Last Filed: 06/07/18 03:57> - General Chief Complaint: Overdose Stated Complaint: POSSIBLE OVERDOSE Time Seen by Provider: 06/07/18 02:54 Notes: Patient is a 47 year old female with depression presents to the emergency department via EMS for a overdose. Patient states she took 10 Ambien, 3 60 mg Adderall and 3-4 Abilify just prior to arrival. EMS states the patient was arguing with her and reports the stating "You wont do it" and the patient proceeded to take the pills. The rest of the history is limited due to patients state. (EVGENY KRAFT) - Related Data Allergies/Adverse Reactions: No Known Allergies Allergy (Verified 12/16/17 15:00) Past Medical History - General Information source: Patient, Emergency Med Personnel - Social History Smoking Status: Unknown if Ever Smoked Family History: Reviewed & Not Pertinent - Past Medical History Cardiac Medical History: Reports: Hx Hypertension Neurological Medical History: Reports: Hx Migraine Skin Medical History: Reports Hx Cellulitis Psychiatric Medical History: Reports: Hx Attention Deficit Hyperactivity Disorder Past Surgical History: Reports: Hx Section - 2005, Hx Tubal Ligation, Other - Breast reduction surgery 2017 - Immunizations Immunizations up to date: No Hx Diphtheria, Pertussis, Tetanus Vaccination: Yes <EVGENY KRAFT - Last Filed: 06/07/18 03:53> Review of Systems - Review of Systems -: Yes ROS unobtainable due to patient's medical condition <EVGENY KRAFT - Last Filed: 06/07/18 03:53> Physical Exam - General General appearance: Other - Drowsy but arousable. - HEENT Head: Normocephalic, Atraumatic Eyes: Normal Conjunctiva: Normal Extraocular movements intact: Yes Pupils: PERRL Mucous membranes: Dry Neck: Normal - Respiratory Respiratory status: No respiratory distress Chest status: Nontender Breath sounds: Normal Chest palpation: Normal - Cardiovascular Rhythm: Regular Heart sounds: Normal auscultation Murmur: No Friction rub: No Gallop: None auscultated - Abdominal Inspection: Normal Distension: No distension Bowel sounds: Normal Tenderness: Nontender Organomegaly: No organomegaly - Extremities General upper extremity: Normal ROM, Normal strength General lower extremity: Normal ROM, Normal strength - Neurological Neuro grossly intact: Yes Cognition: Normal Orientation: AAOx4 [place] Coma Scale Eye Opening: Spontaneous [place] Coma Scale Verbal: Oriented [place] Coma Scale Motor: Obeys Commands [place] Coma Scale Total: 15 Speech: Normal Motor strength normal: LUE, RUE, LLE, RLE - Psychological Associated symptoms: Normal affect, Normal mood - Skin Skin Temperature: Warm Skin Moisture: Dry Skin Color: Normal <EVGENY KRAFT - Last Filed: 06/07/18 03:53> - Vital signs Vitals: Temp Pulse Resp BP Pulse Ox 97.3 F 96 16 115/79 93 06/07/18 02:44 06/07/18 02:44 06/07/18 02:44 06/07/18 02:44 06/07/18 02:44 Course - Laboratory Result Diagrams: 06/07/18 03:00 06/07/18 03:00 <EVGENY KRAFT - Last Filed: 06/07/18 03:53> - Laboratory Result Diagrams: 06/07/18 03:00 06/07/18 03:00 <KOREY MCKEON - Last Filed: 06/07/18 03:57> - Re-evaluation Re-evalutation: 06/07/18 03:50 Poison controlled contacted recommends support care and observation for 6 hours before being medically cleared. (EVGENY KRAFT) 06/07/18 03:55 Patient is a 47-year-old female who presents after an intentional overdose. Patient took a combination of Adderall, Ambien, and Abilify. The approximate number of pills are missing from the bottle based on when the patient filled the medications and what is left. Patient has a normal QTC. There are no coingestants such as aspirin, Tylenol, and alcohol. Patient is drowsy but has stable vitals. There is no prolonged QTC. Poison control recommends watching the patient for 6 hours before she is medically cleared. Recommend supportive care only. Patient would be medically cleared at approximately 8 AM. She will be placed on involuntary commitment paperwork so that mental health services will also see her. (KOREY MCKEON) - Vital Signs Vital signs: Temp Pulse Resp BP Pulse Ox 97.3 F 96 22 H 106/66 100 06/07/18 02:44 06/07/18 02:44 06/07/18 03:01 06/07/18 03:01 06/07/18 03:01 - Laboratory Laboratory results interpreted by me: 06/07/18 06/07/18 06/07/18 03:00 03:00 03:21 WBC 3.4 L RBC 3.36 L Hgb 9.9 L Hct 29.2 L RDW 15.5 H Seg Neutrophils % 35.5 L Lymphocytes % 48.5 H Monocytes % 13.1 H Absolute Neutrophils 1.2 L Sodium 147.5 H Chloride 115 H Alkaline Phosphatase 36 L Urine Protein 30 H Urine Urobilinogen 4.0 H Salicylates < 1.0 L Acetaminophen < 10 L Critical Care Note - Critical Care Note Total time excluding time spent on procedures (mins): 60 - Evaluation and management of intentional overdose, consultation with poison control, multiple re-evaluations, supportive care <KOREY MCKEON - Last Filed: 06/07/18 03:57> Discharge <EVGENY KRAFT - Last Filed: 06/07/18 03:53> <KOREY MCKEON - Last Filed: 06/07/18 03:57> - Discharge Clinical Impression: Intentional overdose of drug in tablet form, Suicidal ideation Condition: Stable Disposition: PSYCH HOSP/UNIT Referrals: SHLOMO SUGGS PA-C [ALLIED HEALTH PROFESSIONAL] - Follow up as needed Scribe Attestation: 06/07/18 03:57 I personally performed the services described in the documentation, reviewed and edited the documentation which was dictated to the scribe in my presence, and it accurately records my words and actions. (KOREY MCKEON) Scribe Documentation - Scribe Written by Armin:: Armin Keyes, 06/07/2018 03:02 acting as scribe for :: Karen <EVGENY KRAFT - Last Filed: 06/07/18 03:53>
[2018-06-07] MEDS ORDERED: NORMAL SALINE 1000 ML 1,000 ML IV ONE (03:03)
[2018-06-07 03:19] LABS: ABSOLUTE LYMPHOCYTES (AUTO) 1.6 10^3/uL (0.5-4.7); ABSOLUTE MONOCYTES (AUTO) 0.4 10^3/uL (0.1-1.4); ABSOLUTE NEUT (AUTO) 1.2 10^3/uL (1.7-8.2); BASOPHILS % (AUTO) 1.4 % (0-2); EOSINOPHILS % (AUTO) 1.5 % (0-6); HEMATOCRIT 29.2 % (36.0-47.0); HEMOGLOBIN 9.9 g/dL (12.0-15.5); LYMPHOCYTES % (AUTO) 48.5 % (13-45); MEAN CORPUSCULAR HEMOGLOBIN 29.4 pg (27.0-33.4); MEAN CORPUSCULAR HGB CONC 33.8 g/dL (32.0-36.0); MEAN CORPUSCULAR VOLUME 87 fl (80-97); MONOCYTES % (AUTO) 13.1 % (3-13); PLATELET COUNT 369 10^3/uL (150-450); RED BLOOD COUNT 3.36 10^6/uL (3.72-5.28); RED CELL DISTRIBUTION WIDTH 15.5 % (11.5-14.0); SEGMENTED NEUTROPHILS % (AUTO) 35.5 % (42-78); TOTAL CELLS COUNTED % (AUTO) 100 %; WHITE BLOOD COUNT 3.4 10^3/uL (4.0-10.5)
[2018-06-07 03:27] LABS: ALANINE AMINOTRANSFERASE 22 U/L (9-52); ALBUMIN 3.5 g/dL (3.5-5.0); ALKALINE PHOSPHATASE 36 U/L (38-126); ANION GAP 11 (5-19); ASPARTATE AMINO TRANSFERASE 17 U/L (14-36); BILIRUBIN,DIRECT 0.2 mg/dL (0.0-0.4); BILIRUBIN,TOTAL 0.2 mg/dL (0.2-1.3); BLOOD UREA NITROGEN 18 mg/dL (7-20); CALCIUM 8.9 mg/dL (8.4-10.2); CARBON DIOXIDE 22 mmol/L (22-30); CHLORIDE 115 mmol/L (98-107); GLUCOSE 83 mg/dL (75-110); SODIUM 147.5 mmol/L (137-145); TOTAL PROTEIN 6.4 g/dL (6.3-8.2)
[2018-06-07 03:28] LABS: ACETAMINOPHEN < 10 ug/mL (10-30); ALCOHOL < 10 mg/dL (NONE DETECTED); SALICYLATE < 1.0 mg/dL (2.0-20.0)
[2018-06-07 03:35] LABS: APPEARANCE,URINE CLEAR; BILIRUBIN,URINE NEGATIVE (NEGATIVE); COLOR,URINE YELLOW; GLUCOSE, URINE NEGATIVE (NEGATIVE); KETONES,URINE NEGATIVE (NEGATIVE); LEUKOCYTE ESTERASE,URINE NEGATIVE (NEGATIVE); NITRITE,URINE NEGATIVE (NEGATIVE); PROTEIN,URINE 30 mg/dL (NEGATIVE); URINE SPECIFIC GRAVITY 1.027
[2018-06-07 03:57] LABS: URINE AMPHETAMINES SCREEN UNCONFIRMED POSITIVE; URINE BARBITURATES SCREEN NEGATIVE; URINE BENZODIAZEPINES SCREEN UNCONFIRMED POSITIVE; URINE COCAINE SCREEN UNCONFIRMED POSITIVE; URINE MARIJUANA (THC) SCREEN UNCONFIRMED POSITIVE; URINE METHADONE SCREEN NEGATIVE; URINE PHENCYCLIDINE SCREEN NEGATIVE
[2018-06-07 06:41] VITALS: BP 92/54
--- NOTE | 2018-06-07 10:25 | ER Document Report ---
Doctor's Note Notes: 06/07/18 10:24 Patient resting comfortably on stretcher with stable vital signs, she is tearful and cooperative, her only request is for a pair of underpants because they were cut off of her last night, mental health team was awaiting medical clearance in order to evaluate patient for further treatment, since patient's blood pressure is significantly improved and vital signs are otherwise stable she is medically cleared, awaiting recommendations from team for further disposition
[2018-06-07] MEDS ORDERED: ACETAMINOPHEN 325 MG TABLET PO ONE (14:03)
--- NOTE | 2018-06-08 14:52 | PSYCHOLOGICAL NOTE ---
Psych Note - Psych Note Psych Note: Reason for Consult: intentional overdose Consent Permissions: none provided Patient is a 47 year old female with depression presents to the emergency department via EMS for a overdose. Patient states she took 10 Ambien, 3 60 mg Adderall and 3-4 Abilify just prior to arrival. EMS states the patient was arguing with her and reports the stating "You wont do it" and the patient proceeded to take the pills. The rest of the history is limited due to patients state. Patient disclosed she got into a verbal altercation with her "accused me of having an affair... I am not." She reported that he hides her medication and when things go wrong her accuses her of being at fault. She discloses that she is attempted to hurt herself 2 times her first "break" was about a year ago she discloses that part of the stressors is that she was looking for a job "forever" but when she finally found one it was "horrible" in addition to being an hour commute so ended up quitting. She states that he has been very stressful and her has 2 jobs now but "the phone is just not ringing for me." She discloses that when things go wrong and she starts to want to hurt herself all she can see is "my sits in the background and laughs at me... He is cruel...he is so mean to me." She discloses that she has identified that she has problems handling difficulties when they arise. She states that when she was feeling really bad last night she did call her father- in-law and told him goodbye. When asked about substance abuse patient stated that she has slowed down using drugs because she is getting older; "I only smoke marijuana every now and then but a couple days ago I did smoke a blunt laced with coke." Patient discloses that "Eliza is the only one that is there for me,wants to be with me and loves me." When asked to Eliza was she states that Eliza is her 7-year-old daughter. Patient is not currently medically cleared and is very tearful. Chart review conduct: Patient has intentionally overdosed December 16, 2017 and April 14, 2018. It is unclear for the current visit if the patient took an overdose. Attending physician noted: The approximate number of pills are missing from the bottle based on when the patient filled the medications and what is left. Patient has a normal QTC. There are no coingestants such as aspirin, Tylenol, and alcohol. Patient is drowsy but has stable vitals. There is no prolonged QTC. Poison control recommends watching the patient for 6 hours before she is medically cleared. Recommend supportive care only. Clinician revisited with patient Patient is now sitting up in bed, observed to be very calm with euthymic mood and congruent affect. She confirms that she went back to the medications she had been prescribed by her outpatient psychiatric provider after both [facility] and [facility] recommended and/or changed her medications. Clinician conducted psychoeducation to discuss patient's substance abuse and subsequent continued use of medications that are highly addictive. She disclosed that she is unable to continue with her outpatient mental health provider because she is closing her office. She reports that she did go to Dr. Tom's office with [facility] after being referred by [facility] however she did not like his services. She disclosed that she used to go to [facility]; however, she was discharged from their services because of an event when she became upset because they were unable to see her so she could get her medications. Patient denies continued suicidal ideation and reports understanding that she needs to seek outpatient mental health resources for both medication management and therapeutic services. She continues to confirm she understands she needs to be honest with her prescribing provider about her substance abuse. Patient discloses to clinician she took medication last night "for me time... I just needed a little sleep" and states her took the bottles from her after she took them. Clinician discussed positive coping skills and appropriate self care. Patient is alert and orientated to person, place, time and circumstance. Mood is euthymic with congruent affect. Patient denies current suicidal and homicidal ideation. Delusions are absent behaviors congruent with an intact reality based presentation i.e. organized and linear thought process. Eye contact is well-maintained. Conversational speech is within normal rate, tone and prosody. Intellectual abilities appear to be within the average range. Attention and concentration were good. Insight, judgment, impulse control were fair. No medication recommendations at this time: Patient has been noncompliant with medication recommendations Diagnosis: Polysubstance current and by history 304.20 (F14.20) Cocaine Use Disorder, Severe 304.30 (F12.20) Cannabis Use Disorder, Severe 311 (F32.9) Unspecified Depressive Disorder R/O 296.80 (F31.9) Unspecified Bipolar and related Disorder Impression\\plan: Patient is recommended for rescind of IVC and is cleared from acute psychiatric services. Patient no longer meets IVC criteria per [facility] GS 122C. Patient denies current suicidal ideation. Patient is recommended for mental health and substance abuse treatment. Patient needs both medication management and therapeutic services to identify triggers and build positive coping skills. Patient is highly encouraged to be honest with her outpatient mental health providers about her substance abuse and be proactive in requesting medications that are not addictive (i.e. Ambien, Adderall and Xanax) . Dr. Yi was consulted and the care and management this patient; attending physician is in agreement with recommendations and disposition.
== END 2018-06-07 16:30 | disposition home or self-care (01) ==
LOC: ER 02:44
DX: T42.6X2A Poisoning by other antiepileptic and sedative-hypnotic drugs, intentional self-harm, initial encounter (principal); T43.622A Poisoning by amphetamines, intentional self-harm, initial encounter; T43.592A Poisoning by other antipsychotics and neuroleptics, intentional self-harm, initial encounter; R40.0 Somnolence; I10 Essential (primary) hypertension; F32.9 Major depressive disorder, single episode, unspecified; F90.9 Attention-deficit hyperactivity disorder, unspecified type; Z79.899 Other long term (current) drug therapy
CPT/HCPCS: 99291; 36415; 80307 ×4; 84703; 85025; 80053; 81001; J3490